=== PATIENT | male | born 1960 | race Caucasian/White ===

== ENCOUNTER 2020-04-19 09:47 | Outpatient (REF) | payer OTHER, SELFPAY ==
[2020-04-19 11:52] LABS: Glucose Urine UA 250 MG/DL (NEG); Leukocyte Esterase Urine NEG (NEG); Nitrite Urine NEG (NEG); PH 5.5 (5.0-8.0); Specific Gravity - Urine >= 1.030 (1.005-1.025); Urine Blood 1+ (NEG); Urine Ketones 15 MG/DL (NEG); Urine Protein 2+ MG/DL (NEG-TRACE)
[2020-04-19 11:54] LABS: Appearance Urine HAZY; Color Urine YELLOW
[2020-04-19 12:07] LABS: Bacteria Urine TRACE /LPF; Mucus Urine 2+ /LPF; RBC Urine 0-2 /HPF (0); Squamous Epithelial Cell Urine TRACE /LPF
== END 2020-04-19 09:48 | disposition home or self-care (01) ==
LOC: HO.HMGCLDS 09:47
PROVIDERS: PCP Internal Medicine; Visit Provider Internal Medicine
DX: R30.0 Dysuria (principal)
CPT/HCPCS: 81001

== ENCOUNTER 2020-04-20 07:49 | Outpatient (REF) | payer OTHER, SELFPAY ==
[2020-04-20 11:13] LABS: Hematocrit 43.6 % (42-52); Hemoglobin 14.7 g/dl (14.0-18.0); Mean Corpuscular HGB Conc 33.7 g/dl (31.0-36.0); Mean Corpuscular Hemoglobin 31.5 pg (27.0-33.0); Mean Corpuscular Volume 93.4 fL (80-98); Mean Platelet Volume 11.7 fL (9.4-12.4); Platelet Count 146 X10*3/uL (160-400); Red Blood Count 4.67 X10*6/uL (4.60-5.80); Red Cell Distribution Width 11.6 % (11.0-16.0); White Blood Count 5.8 X10*3/uL (4.8-10.8)
[2020-04-20 11:23] LABS: Glucose Urine UA 250 MG/DL (NEG); Leukocyte Esterase Urine NEG (NEG); Nitrite Urine NEG (NEG); Specific Gravity - Urine >= 1.030 (1.005-1.025); Urine Blood NEG (NEG); Urine Ketones 5 MG/DL (NEG); Urine Protein 2+ MG/DL (NEG-TRACE)
[2020-04-20 11:24] LABS: Appearance Urine TURBID; Color Urine YELLOW
[2020-04-20 11:32] LABS: Estimated Average Glucose 180 mg/dL; Hemoglobin A1c % 7.9 %
[2020-04-20 11:37] LABS: Alanine Aminotransferase 35 U/L (0-40); Albumin Level 4.3 g/dL (3.5-5.0); Alkaline Phosphatase 52 U/L (39-117); Anion Gap 15 (12-20); Aspartate Amino Transferase 27 U/L (5-37); Bilirubin Total 1.1 mg/dL (0.0-1.0); Blood Urea Nitrogen 14 mg/dL (9-16); Calcium 8.6 mg/dL (8.4-10.2); Carbon Dioxide 24 mmol/L (22-29); Chloride 101 mmol/L (96-108); Cholesterol 166 mg/dL; Estimated Glomerular Filt Rate > 60; Glucose Fasting 228 mg/dL (60-99); HDL Cholesterol 35 mg/dL; LDL Cholesterol Calculated 85 mg/dl; Potassium 3.7 mmol/l (3.3-5.1); Sodium 136 mmol/L (135-145); Total Protein 7.2 g/dL (6.5-8.0); Triglycerides 230 mg/dL
[2020-04-20 11:44] LABS: Amorphous Sediment Urine 3+ /LPF; Bacteria Urine 1+ /LPF; Sperm Urine NOTED; WBC Urine 0-2 /HPF (0-4)
[2020-04-20 11:45] LABS: Creatinine Urine 307.05 mg/dL; Microalbum/Creatinine Ratio Ur 148.8 ug/mg cr
== END 2020-04-20 07:50 | disposition home or self-care (01) ==
LOC: HO.HMGCLDS 07:49
PROVIDERS: PCP Internal Medicine; Visit Provider Internal Medicine
DX: I10 Essential (primary) hypertension (principal); E11.9 Type 2 diabetes mellitus without complications
CPT/HCPCS: 36415; 80053; 80061; 81001; 82043; 83036; 85027

== ENCOUNTER 2021-04-11 10:39 | Outpatient (REF) | payer OTHER, SELFPAY ==
[2021-04-11 13:50] LABS: MANUAL DIFF FLAG NO
[2021-04-11 13:55] LABS: Basophils Percent Auto 0.4 % (0-2); Eosinophils Absolute Auto 0.2 X10*3/uL (0.0-0.4); Eosinophils Percent Auto 2.8 % (0-4); Hematocrit 44.8 % (42.0-52.0); Hemoglobin 15.2 g/dl (14.0-18.0); Imm Gran Abs Auto 0.01 X10*3/uL (0.00-0.03); Imm Gran Pct Auto 0.2 % (0.0-0.4); Mean Corpuscular HGB Conc 33.9 g/dl (31.0-36.0); Mean Corpuscular Hemoglobin 31.9 pg (27.0-33.0); Mean Corpuscular Volume 94.1 fL (80.0-98.0); Mean Platelet Volume 11.2 fL (9.4-12.4); Monocytes Absolute Auto 0.5 X10*3/uL (0.1-1.2); Monocytes Percent Auto 9.6 % (2-11); Neutrophils Absolute Auto 2.8 x10*3/uL (2.0-8.3); Platelet Count 199 X10*3/uL (160-400); Red Blood Count 4.76 X10*6/uL (4.60-5.80); White Blood Count 5.4 X10*3/uL (4.8-10.8)
[2021-04-11 14:08] LABS: Estimated Average Glucose 197 mg/dL; Hemoglobin A1c % 8.5 %
[2021-04-11 14:16] LABS: Appearance Urine CLOUDY; Color Urine YELLOW; Glucose Urine UA 500 MG/DL (NEG); Leukocyte Esterase Urine NEG (NEG); Nitrite Urine NEG (NEG); PH 5.5 (5.0-8.0); Specific Gravity - Urine >= 1.030 (1.005-1.025); Urine Blood NEG (NEG); Urine Ketones NEG (NEG); Urine Protein NEG (NEG-TRACE)
[2021-04-11 14:41] LABS: Alanine Aminotransferase 39 U/L (0-40); Albumin Level 4.6 g/dL (3.5-5.0); Alkaline Phosphatase 55 U/L (39-117); Anion Gap 12 (12-20); Aspartate Amino Transferase 24 U/L (5-37); Bilirubin Total 0.7 mg/dL (0.0-1.0); Blood Urea Nitrogen 11 mg/dL (9-16); Calcium 9.8 mg/dL (8.4-10.2); Carbon Dioxide 25 mmol/L (22-29); Chloride 105 mmol/L (96-108); Cholesterol 245 mg/dL; Estimated Glomerular Filt Rate > 60; Glucose Fasting 210 mg/dL (60-99); HDL Cholesterol 42 mg/dL; LDL Cholesterol Calculated 153 mg/dl; Potassium 4.4 mmol/L (3.3-5.1); Sodium 138 mmol/L (135-145); Total Protein 7.3 g/dL (6.5-8.0); Triglycerides 250 mg/dL
[2021-04-11 14:44] LABS: Creatinine Urine 147.89 mg/dL; Microalbum/Creatinine Ratio Ur 16.2 ug/mg cr; Prostate Specific Antigen Scr 1.16 ng/mL (<0.05-4.0)
[2021-04-11 15:25] LABS: RBC Urine 0 /HPF (0); WBC Urine 0 /HPF (0-4)
[2021-04-11 15:26] LABS: Amorphous Sediment Urine 4+ /LPF
== END 2021-04-11 10:40 | disposition home or self-care (01) ==
LOC: HO.HMGCLDS 10:39
PROVIDERS: PCP Internal Medicine; Visit Provider Internal Medicine
DX: Z12.5 Encounter for screening for malignant neoplasm of prostate (principal); E11.9 Type 2 diabetes mellitus without complications; I10 Essential (primary) hypertension
CPT/HCPCS: 36415; 80053; 80061; 81001; 82043; 83036; 84153; 85025

== ENCOUNTER 2021-07-16 08:06 | Outpatient (REF) | payer OTHER, SELFPAY ==
[2021-07-16 11:59] LABS: Hematocrit 46.6 % (42.0-52.0); Hemoglobin 15.8 g/dl (14.0-18.0); Mean Corpuscular HGB Conc 33.9 g/dl (31.0-36.0); Mean Corpuscular Hemoglobin 31.7 pg (27.0-33.0); Mean Corpuscular Volume 93.6 fL (80.0-98.0); Mean Platelet Volume 10.6 fL (9.4-12.4); Platelet Count 195 X10*3/uL (160-400); Red Blood Count 4.98 X10*6/uL (4.60-5.80); Red Cell Distribution Width 11.9 % (11.0-16.0); White Blood Count 6.6 X10*3/uL (4.8-10.8)
[2021-07-16 12:16] LABS: Alanine Aminotransferase 29 U/L (0-40); Albumin Level 4.4 g/dL (3.5-5.0); Alkaline Phosphatase 49 U/L (39-117); Anion Gap 12 (12-20); Aspartate Amino Transferase 17 U/L (5-37); Blood Urea Nitrogen 15 mg/dL (9-16); Calcium 9.5 mg/dL (8.4-10.2); Carbon Dioxide 26 mmol/L (22-29); Chloride 104 mmol/L (96-108); Cholesterol 165 mg/dL; Estimated Glomerular Filt Rate > 60; Glucose Fasting 199 mg/dL (60-99); HDL Cholesterol 34 mg/dL; LDL Cholesterol Calculated 69 mg/dl; Sodium 138 mmol/L (135-145); Triglycerides 312 mg/dL
[2021-07-16 12:26] LABS: Estimated Average Glucose 220 mg/dL; Hemoglobin A1c % 9.3 %
[2021-07-16 12:47] LABS: Creatinine Urine 68.75 mg/dL; Microalbum/Creatinine Ratio Ur 8.7 ug/mg cr
== END 2021-07-16 08:07 | disposition home or self-care (01) ==
LOC: HO.HMGCLDS 08:06
PROVIDERS: Visit Provider Internal Medicine
DX: E11.9 Type 2 diabetes mellitus without complications (principal); I10 Essential (primary) hypertension
CPT/HCPCS: 36415; 80053; 80061; 82043; 83036; 85027

== ENCOUNTER 2021-07-20 07:35 | Outpatient (REF) | payer OTHER, SELFPAY ==
--- NOTE | ~2021-07-20 | US_ITS ---
EXAMINATION: US RETROPERITONEAL LIMITED (RENAL ONLY) CLINICAL INFORMATION: Calculus of kidney. COMPARISON: Renal ultrasound 03/10/2019. TECHNIQUE: Real-time imaging of the kidneys. FINDINGS: RIGHT KIDNEY: 11.6 x 5.5 x 5.2 cm (SAG x AP x TRV). The kidney is normal in size, contour, and echogenicity. Renal cortical thickness is normal. No hydronephrosis. There is anechoic cyst in the lower pole measuring 0.7 x 0.4 0.6 cm and midpole measuring 0.5 x 0 0.5 to 0.5 cm. 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 There is an nonobstructive echogenic calculi mid/lower pole measuring 0.4 x 0.2 cm. LEFT KIDNEY: 11.9 x 5.2 x 4.7 cm (SAG x AP x TRV). The kidney is normal in size, contour, and echogenicity. Renal cortical thickness is normal. No calculi or focal parenchymal lesions. No hydronephrosis. US/US renal BI IMPRESSION: Nonobstructive echogenic stone mid/lower pole right kidney. 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 Left kidney is unremarkable..
== END 2021-07-20 07:36 | disposition home or self-care (01) ==
LOC: HO.US 07:35
PROVIDERS: Visit Provider Internal Medicine
DX: N20.0 Calculus of kidney (principal)
CPT/HCPCS: 76775

== ENCOUNTER 2022-02-25 08:07 | Outpatient (REF) | payer OTHER, SELFPAY ==
[2022-02-25 12:13] LABS: Alanine Aminotransferase 22 U/L (0-40); Albumin Level 4.4 g/dL (3.5-5.0); Alkaline Phosphatase 52 U/L (39-117); Anion Gap 13 (12-20); Aspartate Amino Transferase 17 U/L (5-37); Bilirubin Total 0.6 mg/dL (0.0-1.0); Blood Urea Nitrogen 14 mg/dL (9-16); Calcium 9.4 mg/dL (8.4-10.2); Carbon Dioxide 26 mmol/L (22-29); Chloride 105 mmol/L (96-108); Cholesterol 199 mg/dL; Estimated Glomerular Filt Rate > 60; Glucose Fasting 208 mg/dL (60-99); HDL Cholesterol 37 mg/dL; LDL Cholesterol Calculated 107 mg/dl; Potassium 4.1 mmol/L (3.3-5.1); Sodium 140 mmol/L (135-145); Total Protein 6.9 g/dL (6.5-8.0); Triglycerides 275 mg/dL
[2022-02-25 12:30] LABS: Estimated Average Glucose 212 mg/dL
== END 2022-02-25 08:08 | disposition home or self-care (01) ==
LOC: HO.HMGCLDS 08:07
PROVIDERS: PCP Internal Medicine; Visit Provider Internal Medicine
DX: E11.9 Type 2 diabetes mellitus without complications (principal); I10 Essential (primary) hypertension
CPT/HCPCS: 36415; 80053; 80061; 83036

== ENCOUNTER 2022-05-04 11:10 | Outpatient (REF) | payer OTHER, SELFPAY ==
--- NOTE | ~2022-05-04 | XR_ITS ---
EXAMINATION: XR CHEST CLINICAL INFORMATION: Cough. COMPARISON: None TECHNIQUE: 2 views of the chest were obtained. FINDINGS: No significant abnormality is noted involving the heart, lungs, mediastinum, bony thorax or soft tissues. XR/XR chest 2V IMPRESSION: Unremarkable chest examination.
== END 2022-05-04 11:11 | disposition home or self-care (01) ==
LOC: HO.HMGCX 11:10
PROVIDERS: PCP Internal Medicine; Visit Provider Physician Assistant Medical
DX: R05.9 Cough, unspecified (principal)
CPT/HCPCS: 71046

== ENCOUNTER 2022-05-04 13:58 | Outpatient (REF) | payer OTHER, SELFPAY ==
[2022-05-04 16:39] LABS: Influenza A PCR NEGATIVE (Negative); Influenza B PCR NEGATIVE (Negative); Resp Syncy Virus RNA Qual PCR NEGATIVE (Negative); SARS COV2 PCR INHOUSE NEGATIVE (Negative)
== END 2022-05-04 13:59 | disposition home or self-care (01) ==
LOC: HO.LAB 13:58
PROVIDERS: Visit Provider Physician Assistant Medical
DX: Z20.822 Contact with and (suspected) exposure to COVID-19 (principal)
CPT/HCPCS: 0241U

== ENCOUNTER 2022-08-15 09:44 | Outpatient (REF) | payer OTHER, SELFPAY ==
[2022-08-15 11:12] LABS: MANUAL DIFF FLAG NO
[2022-08-15 11:24] LABS: Basophils Percent Auto 0.3 % (0-2); Eosinophils Absolute Auto 0.1 X10*3/uL (0.0-0.4); Eosinophils Percent Auto 1.6 % (0-4); Hematocrit 49.6 % (42.0-52.0); Hemoglobin 16.7 g/dl (14.0-18.0); Imm Gran Abs Auto 0.01 X10*3/uL (0.00-0.03); Imm Gran Pct Auto 0.2 % (0.0-0.4); Lymphocytes Percent Auto 32.1 % (20-40); Mean Corpuscular HGB Conc 33.7 g/dl (31.0-36.0); Mean Corpuscular Hemoglobin 31.6 pg (27.0-33.0); Mean Corpuscular Volume 93.8 fL (80.0-98.0); Mean Platelet Volume 10.3 fL (9.4-12.4); Monocytes Absolute Auto 0.7 X10*3/uL (0.1-1.2); Monocytes Percent Auto 11.4 % (2-11); Neutrophils Absolute Auto 3.4 x10*3/uL (2.0-8.3); Neutrophils Percent Auto 54.4 % (45-73); Platelet Count 213 X10*3/uL (160-400); Red Blood Count 5.29 X10*6/uL (4.60-5.80); Red Cell Distribution Width 12.4 % (11.0-16.0); White Blood Count 6.2 X10*3/uL (4.8-10.8)
[2022-08-15 11:38] LABS: Alanine Aminotransferase 22 U/L (0-40); Albumin Level 4.5 g/dL (3.5-5.0); Alkaline Phosphatase 52 U/L (39-117); Anion Gap 15 (12-20); Aspartate Amino Transferase 16 U/L (5-37); Bilirubin Total 1.1 mg/dL (0.0-1.0); Blood Urea Nitrogen 15 mg/dL (9-16); Calcium 9.9 mg/dL (8.4-10.2); Carbon Dioxide 27 mmol/L (22-29); Chloride 103 mmol/L (96-108); Cholesterol 205 mg/dL; Estimated Glomerular Filt Rate > 60; Glucose Fasting 121 mg/dL (60-99); HDL Cholesterol 37 mg/dL; LDL Cholesterol Calculated 115 mg/dl; Potassium 4.8 mmol/L (3.3-5.1); Sodium 140 mmol/L (135-145); Total Protein 7.2 g/dL (6.5-8.0); Triglycerides 268 mg/dL
[2022-08-15 11:57] LABS: Estimated Average Glucose 143 mg/dL; Hemoglobin A1c % 6.6 %
[2022-08-15 12:30] LABS: Creatinine Urine 116.23 mg/dL
== END 2022-08-15 09:45 | disposition home or self-care (01) ==
LOC: HO.HMGCLDS 09:44
PROVIDERS: PCP Internal Medicine; Visit Provider Internal Medicine
DX: E11.9 Type 2 diabetes mellitus without complications (principal); E78.5 Hyperlipidemia, unspecified
CPT/HCPCS: 36415; 80053; 80061; 82043; 83036; 85025

== ENCOUNTER 2022-11-16 08:54 | Outpatient (REF) | payer OTHER, SELFPAY ==
[2022-11-16 11:49] LABS: Estimated Average Glucose 128 mg/dL; Hemoglobin A1c % 6.1 %
[2022-11-16 12:01] LABS: Alanine Aminotransferase 19 U/L (0-40); Albumin Level 4.3 g/dL (3.5-5.0); Alkaline Phosphatase 53 U/L (39-117); Anion Gap 12 (12-20); Aspartate Amino Transferase 18 U/L (5-37); Bilirubin Total 1.1 mg/dL (0.0-1.0); Blood Urea Nitrogen 12 mg/dL (9-16); Calcium 9.4 mg/dL (8.4-10.2); Carbon Dioxide 25 mmol/L (22-29); Chloride 108 mmol/L (96-108); Cholesterol 118 mg/dL; Estimated Glomerular Filt Rate > 60; Glucose Fasting 118 mg/dL (60-99); HDL Cholesterol 35 mg/dL; LDL Cholesterol Calculated 58 mg/dl; Potassium 4.1 mmol/L (3.3-5.1); Sodium 141 mmol/L (135-145); Total Protein 7.1 g/dL (6.5-8.0); Triglycerides 129 mg/dL
[2022-11-16 12:10] LABS: Creatinine Urine 148.03 mg/dL; Microalbum/Creatinine Ratio Ur 5.4 ug/mg cr
== END 2022-11-16 08:55 | disposition home or self-care (01) ==
LOC: HO.HMGCLDS 08:54
PROVIDERS: PCP Internal Medicine; Visit Provider Internal Medicine
DX: E11.9 Type 2 diabetes mellitus without complications (principal); E78.5 Hyperlipidemia, unspecified
CPT/HCPCS: 36415; 80053; 80061; 82043; 83036

== ENCOUNTER 2022-11-20 08:29 | Outpatient (AMB) | payer OTHER, SELFPAY ==
[2022-11-20 08:32] VITALS: BP 110/62; PULSE 82; O2SAT 95; BMI 33.0
--- NOTE | 2022-11-20 08:32 | A.OFFPC_ITS ---
Vital Signs 11/20/22 08:32 Height 5 ft 4 in Weight 192 lb BMI 33.0 BP 110/62 Blood Pressure Location Lt brachial Position Sitting Pulse 82 Pulse Source Pulse Oximeter Pulse Oximetry (%) 95 Oxygen Delivery Method Room Air Intake Visit Reasons: 3m follow up Intake Note: Pt is here today for 3 months follow up visit. Pt states that he has been having R shoulder pain. Allergies iodine Allergy (Unknown, Verified 11/20/22 08:35) Rash chlorine Allergy (Unknown, Uncoded 11/20/22 08:35) Rash Medication List - Last Reconciled 11/20/22 by Vania Bruner MD atorvastatin (Lipitor) 20 mg PO DAILY blood sugar diagnostic (OneTouch Ultra Test strips) 1 bid blood sugar diagnostic (FreeStyle Lite Strips) 1 QD blood-glucose meter (Freestyle InsuLinx meter) 1 bid dapagliflozin propanediol (Farxiga) 10 mg PO DAILY dulaglutide (Trulicity) 0.75 mg (0.5 mL) subcut QWEEK insulin glargine (Lantus Solostar U-100 Insulin) 20 units (0.2 mL) subcut QPM meloxicam 15 mg PO DAILY metformin 2 tabs in am, 3 tabs in pm PO; metoprolol succinate ER 25 mg PO DAILY pen needle, diabetic (Easy Comfort Pen [place]) 1 qd tamsulosin 0.4 mg PO BEDTIME Tobacco use date assessed: 11/20/22 Dental Screening Dental Screen Date: 11/20/22 Did you have a dental visit in the last 12 months?: Yes Did you have a dental problem in the last 6 months where you did not have access to dental care?: No Was dental information given to patient?: Patient has dentist HPI 3m follow up HPI Details Pt presents follow-up of type 2 diabetes and hyperlipidemia. Patient complains of right shoulder pain for 2 weeks after pushing a heavy object. The pain is worse when patient is trying to reach overhead or lift. [facility] Medical History (Updated 11/20/22 @ 12:50 by Vania Bruner MD) Abnormal colonoscopy Annual physical exam DJD (degenerative joint disease), lumbar DM type 2 (diabetes mellitus, type 2) Dysuria Hyperlipidemia Nephrolithiasis Surgical History H/O colonoscopy Family History Father Lung cancer Mother No problems noted. Social History Housing: House Patient Tobacco Use Status: Never used Tobacco e-Cigarette/Vaping Use: Never Used Current occupational status: employed Cognitive needs: No Hearing needs: No Vision needs: Yes Questionnaire Thrive Questionnaire Date Thrive assessed: 05/15/22 AUDIT C Alcohol Use Questionnaire (AUDIT-C) 1. How often do you have a drink containing alcohol?: Never 3. How often do you have six or more drinks on one occasion?: Never Total Score: 0 PARESH-7 AMB Questionnaire PARESH-7 Date PARESH - 7 assessed: 05/15/22 Source: Developed by Drs. Randy Call, Leela Emmanuel, Omar Galaviz and colleagues, with an educational madhu from [employer]. Review of Systems Const All systems reviewed & are unremarkable except as noted in HPI and below Reports no additional complaints Eyes Reports no additional complaints ENT Reports no additional complaints Card Reports no additional complaints GI Reports no additional complaints Physical exam (Primary Care) Vital Signs: Last Vital Signs Pulse 82 11/20/22 08:32 BP 110/62 11/20/22 08:32 Pulse Ox 95 11/20/22 08:32 Oxygen Delivery Method Room Air 11/20/22 08:32 BMI result Body Mass Index 33.0 Tobacco/Smoking Status: Tobacco use Status Tobacco use date assessed 11/20/22 11/20/22 08:36 Patient Tobacco Use Status Never used Tobacco 11/20/22 08:36 e-Cigarette/Vaping Use Never Used 11/20/22 08:36 Thrive Assessment: Date of Thrive Assessment Date Thrive assessed 05/15/22 11/20/22 08:36 Const General: no acute distress HENMT Head: Yes normal to inspection Neck Neck: Yes no lymphadenopathy and Yes supple Resp Effort & Inspection: normal respiratory effort Auscultation: clear to auscultation bilaterally Cardio Rhythm: regular rhythm Heart sounds: S1 normal heart sound present and S2 normal heart sound present GI Inspection: Yes normal to inspection Palpation (GI): Soft to palpation Extrem Other: tenderness over R ant/lat shoulder and DROM Assessment and Plan Assessment & Plan (1) Shoulder pain, right: Code(s): M25.511 - Pain in right shoulder Plan: Meloxicam and PT (2) DM type 2 (diabetes mellitus, type 2): Comment: a1c 6.1, Code(s): E11.9 - Type 2 diabetes mellitus without complications Plan: cont current tx (3) Hyperlipidemia: Code(s): E78.5 - Hyperlipidemia, unspecified Plan: cont Lipitor, f/u 3 month Orders: Orders PT Evaluation and Treatment Today M25.511 - Pain in right shoulder Comprehensive [place]. Panel Fast 3 Months E11.9 - Type 2 diabetes mellitus without complications, E78.5 - Hyperlipidemia, unspecified Hemoglobin A1c 3 Months E11.9 - Type 2 diabetes mellitus without complications, E78.5 - Hyperlipidemia, unspecified Lipid Panel 3 Months E11.9 - Type 2 diabetes mellitus without complications, E78.5 - Hyperlipidemia, unspecified Microalbumin 24 hr Urine 3 Months E11.9 - Type 2 diabetes mellitus without complications, E78.5 - Hyperlipidemia, unspecified Medications: New meloxicam 15 mg PO DAILY 10 tabs 0RF Refilled pen needle, diabetic (Easy Comfort Pen [place]) 1 qd 100 ea 4RF blood sugar diagnostic (FreeStyle Lite Strips) 1 QD 100 ea 3RF Discontinued blood sugar diagnostic (OneTouch Ultra Test strips) Discontinued Reason: Doctor's Order 1 bid 100 ea 6RF Coding Level of Care Code Est Pt Level 4 (62059) Diagnoses Shoulder pain, right M25.511 DM type 2 (diabetes mellitus, type 2) E11.9 Hyperlipidemia E78.5
== END 2022-11-20 09:50 | disposition home or self-care (01) ==
PROVIDERS: Visit Provider Internal Medicine
DX: M25.511 Pain in right shoulder (principal); E11.9 Type 2 diabetes mellitus without complications; E78.5 Hyperlipidemia, unspecified
CPT/HCPCS: 99214

== ENCOUNTER 2023-02-22 08:27 | Outpatient (REF) | payer OTHER, SELFPAY ==
[2023-02-22 11:37] LABS: Alanine Aminotransferase 16 U/L (0-40); Albumin Level 4.4 g/dL (3.5-5.0); Alkaline Phosphatase 47 U/L (39-117); Anion Gap 14 (12-20); Aspartate Amino Transferase 16 U/L (5-37); Bilirubin Total 1.1 mg/dL (0.0-1.0); Blood Urea Nitrogen 18 mg/dL (9-16); Calcium 9.7 mg/dL (8.4-10.2); Carbon Dioxide 23 mmol/L (22-29); Chloride 107 mmol/L (96-108); Cholesterol 152 mg/dL (<200); Estimated Glomerular Filt Rate > 60; Glucose Fasting 132 mg/dL (60-99); HDL Cholesterol 38 mg/dL (>40); LDL Cholesterol Calculated 78 mg/dL (<100); Potassium 4.3 mmol/L (3.3-5.1); Sodium 140 mmol/L (135-145); Total Protein 7.3 g/dL (6.5-8.0); Triglycerides 182 mg/dL (<150)
[2023-02-22 11:41] LABS: Estimated Average Glucose 140 mg/dL; Hemoglobin A1C 172.4065 umol/L; Hemoglobin A1c % 6.5 % (<6.0)
== END 2023-02-22 08:28 | disposition home or self-care (01) ==
LOC: HO.HMGCLDS 08:27
PROVIDERS: PCP Internal Medicine; Visit Provider Internal Medicine
DX: E11.9 Type 2 diabetes mellitus without complications (principal); E78.5 Hyperlipidemia, unspecified
CPT/HCPCS: 36415; 80053; 80061; 83036

== ENCOUNTER 2023-02-24 07:30 | Outpatient (REF) | payer OTHER, SELFPAY ==
[2023-02-24 12:56] LABS: Microalbumin 24 Hour Urine < 5.0 mg/L
[2023-02-24 18:01] LABS: Total Volume 24 Hour Urine 2550 mL
== END 2023-02-24 07:31 | disposition home or self-care (01) ==
LOC: HO.HMGCLNP 07:30
PROVIDERS: PCP Internal Medicine; Visit Provider Internal Medicine
DX: E11.9 Type 2 diabetes mellitus without complications (principal); E78.5 Hyperlipidemia, unspecified
CPT/HCPCS: 82043

== ENCOUNTER 2023-02-25 07:33 | Outpatient (AMB) | payer OTHER, SELFPAY ==
--- NOTE | 2023-02-25 07:46 | MHC.PC.OV ---
Vital Signs 02/25/23 07:47 Height 5 ft 4 in Weight 192 lb BMI 33.0 BP 110/72 Blood Pressure Location Lt brachial Position Sitting Pulse 80 Pulse Source Pulse Oximeter Pulse Oximetry (%) 98 Oxygen Delivery Method Room Air Intake Visit Reasons: 3 month fu Intake Note: Pt is here today for his 3 months f/u Allergies iodine Allergy (Unknown, Verified 02/25/23 07:48) Rash chlorine Allergy (Unknown, Uncoded 02/25/23 07:48) Rash Medication List - Last Reconciled 02/25/23 by Vania Bruner MD atorvastatin (Lipitor) 20 mg PO DAILY blood sugar diagnostic (FreeStyle Lite Strips) 1 QD blood-glucose meter (Freestyle [employer]x meter) 1 bid dapagliflozin propanediol (Farxiga) 10 mg PO DAILY dulaglutide (Trulicity) 0.75 mg (0.5 mL) subcut QWEEK insulin glargine (Lantus Solostar U-100 Insulin) 20 units (0.2 mL) subcut QPM meloxicam 15 mg PO DAILY metformin 2 tabs in am, 3 tabs in pm PO; metoprolol succinate ER 25 mg PO DAILY pen needle, diabetic (Easy Comfort Pen [place]) 1 qd Tobacco use date assessed: 02/25/23 Dental Screening Dental Screen Date: 02/25/23 Did you have a dental visit in the last 12 months?: Yes Did you have a dental problem in the last 6 months where you did not have access to dental care?: Yes Was dental information given to patient?: Patient has dentist HPI 3 month fu HPI Details Patient presents for follow-up of type 2 diabetes, and hyperlipidemia stable on current medications. [facility] Medical History Hyperlipidemia Annual physical exam Abnormal colonoscopy DJD (degenerative joint disease), lumbar DM type 2 (diabetes mellitus, type 2) Dysuria Nephrolithiasis Surgical History H/O colonoscopy Family History Father Lung cancer Mother No problems noted. Social History Housing: House Patient Tobacco Use Status: Never used Tobacco e-Cigarette/Vaping Use: Never Used Current occupational status: employed Cognitive needs: No Hearing needs: No Vision needs: Yes Questionnaire Thrive Questionnaire Date Thrive assessed: 05/15/22 PARESH-7 AMB Questionnaire PARESH-7 Date PARESH - 7 assessed: 05/15/22 Source: Developed by Drs. Randy Call, Leela Emmanuel, Omar Galaviz and colleagues, with an educational madhu from [employer]. Review of Systems Const All systems reviewed & are unremarkable except as noted in HPI and below Reports no additional complaints Eyes Reports no additional complaints ENT Reports no additional complaints Card Reports no additional complaints Resp Reports no additional complaints GI Reports no additional complaints Reports no additional complaints Musc Reports no additional complaints Physical exam (Primary Care) Vital Signs: Last Vital Signs Pulse 80 02/25/23 07:47 BP 110/72 02/25/23 07:47 Pulse Ox 98 02/25/23 07:47 Oxygen Delivery Method Room Air 02/25/23 07:47 BMI result Body Mass Index 33.0 Tobacco/Smoking Status: Tobacco use Status Tobacco use date assessed 02/25/23 02/25/23 07:50 Patient Tobacco Use Status Never used Tobacco 02/25/23 07:50 e-Cigarette/Vaping Use Never Used 02/25/23 07:50 Thrive Assessment: Date of Thrive Assessment Date Thrive assessed 05/15/22 02/25/23 07:50 Const General: no acute distress HENMT Head: Yes normal to inspection Ears: hearing grossly normal bilaterally Throat: Yes posterior oropharynx normal Eyes General: appearance normal, both eyes and all related structures Resp Effort & Inspection: normal respiratory effort Auscultation: clear to auscultation bilaterally Cardio Rhythm: regular rhythm Heart sounds: S1 normal heart sound present and S2 normal heart sound present GI Inspection: Yes normal to inspection Palpation (GI): Soft to palpation Percussion: Yes normal to percussion Assessment and Plan Assessment & Plan (1) Hyperlipidemia: Code(s): E78.5 - Hyperlipidemia, unspecified Plan: Continue statin (2) DM type 2 (diabetes mellitus, type 2): Comment: a1c 6.1, Code(s): E11.9 - Type 2 diabetes mellitus without complications Plan: A1c is 6.5, ADA diet increase physical activity weight loss discussed with the patient. He has not been taking Trulicity for 1 month because did have a refill. Medication complains discussed with the patient, return in 3 months with a fasting labs before Orders: Orders Hemoglobin A1c 3 Months E11.9 - Type 2 diabetes mellitus without complications, E78.5 - Hyperlipidemia, unspecified, Z00.00 - Encounter for general adult medical examination without abnormal findings Lipid Panel 3 Months E11.9 - Type 2 diabetes mellitus without complications, E78.5 - Hyperlipidemia, unspecified, Z00.00 - Encounter for general adult medical examination without abnormal findings Microalbumin, Random (w Creat) 3 Months E11.9 - Type 2 diabetes mellitus without complications, E78.5 - Hyperlipidemia, unspecified, Z00.00 - Encounter for general adult medical examination without abnormal findings Comprehensive [place]. Panel Fast 3 Months E11.9 - Type 2 diabetes mellitus without complications, E78.5 - Hyperlipidemia, unspecified, Z00.00 - Encounter for general adult medical examination without abnormal findings Complete Blood Count Auto Diff 3 Months E11.9 - Type 2 diabetes mellitus without complications, E78.5 - Hyperlipidemia, unspecified, Z00.00 - Encounter for general adult medical examination without abnormal findings UA w Microscopic 3 Months E11.9 - Type 2 diabetes mellitus without complications, E78.5 - Hyperlipidemia, unspecified, Z00.00 - Encounter for general adult medical examination without abnormal findings Referrals Gastroenterology Referral Z00.00 - Encounter for general adult medical examination without abnormal findings Medications: Refilled blood sugar diagnostic (FreeStyle Lite Strips) 1 QD 100 ea 3RF E11.9 - Type 2 diabetes mellitus without complications insulin glargine (Lantus Solostar U-100 Insulin) 20 units (0.2 mL) subcut QPM 15 mL 2RF metoprolol succinate ER 25 mg PO DAILY 90 tabs 3RF pen needle, diabetic (Easy Comfort Pen [place]) 1 qd 100 ea 4RF dulaglutide (Trulicity) 0.75 mg (0.5 mL) subcut QWEEK 6 mL 3RF metformin 2 tabs in am, 3 tabs in pm PO; 150 tabs 6RF atorvastatin (Lipitor) 20 mg PO DAILY 90 tabs 3RF Discontinued tamsulosin Discontinued Reason: Doctor's Order 0.4 mg PO BEDTIME 90 caps 0RF Coding Level of Care Code Est Pt Level 4 (09030) Diagnoses Hyperlipidemia E78.5 DM type 2 (diabetes mellitus, type 2) E11.9
[2023-02-25 07:47] VITALS: BP 110/72; PULSE 80; O2SAT 98; BMI 33.0
== END 2023-02-25 08:35 | disposition home or self-care (01) ==
PROVIDERS: PCP Internal Medicine; Visit Provider Internal Medicine
DX: E78.5 Hyperlipidemia, unspecified (principal); E11.9 Type 2 diabetes mellitus without complications
CPT/HCPCS: 99214

== ENCOUNTER 2023-05-02 12:44 | Outpatient (AMB) | payer OTHER, SELFPAY ==
--- NOTE | 2023-05-02 13:37 | MHC.OFFWIV ---
Intake Vital Signs 05/02/23 13:40 Height 5 ft 4 in Weight 196 lb 8 oz BMI 33.7 BP 130/70 Blood Pressure Location Rt brachial Pulse 90 Pulse Source Pulse Oximeter Temp 97.1 F Temp Source Temporal Artery Scan Pulse Oximetry (%) 97 Oxygen Delivery Method Room Air Intake Visit Reasons: EP, cough ([phone]) Intake Note: Pt is here c/o bad cough for one week. Patient Tobacco Use Status: Never used Tobacco Allergies iodine Allergy (Unknown, Verified 05/02/23 13:37) Rash chlorine Allergy (Unknown, Uncoded 05/02/23 13:37) Rash Do you need a note to return to daycare/school/sports/work: No HPI EP, cough ([phone]) HPI Details This is a 62 year old gentleman who presents today with persistent productive cough x1 week. He reports many family members have also been sick. Denies any fever or shortness of breath. Also reports a fungal rash around penis and under armpits. He states this occurs every so often and he responds well to Fluconazole. [facility] Medical History Hyperlipidemia Annual physical exam Abnormal colonoscopy DJD (degenerative joint disease), lumbar DM type 2 (diabetes mellitus, type 2) Dysuria Nephrolithiasis Surgical History H/O colonoscopy Family History Father Lung cancer Mother No problems noted. Social History Housing: House Patient Tobacco Use Status: Never used Tobacco e-Cigarette/Vaping Use: Never Used Current occupational status: employed Cognitive needs: No Hearing needs: No Vision needs: Yes Review of Systems Const All systems reviewed & are unremarkable except as noted in HPI and below Physical Exam Vital Signs: Last Vital Signs Temp 97.1 F 05/02/23 13:40 Pulse 90 05/02/23 13:40 BP 130/70 05/02/23 13:40 Pulse Ox 97 05/02/23 13:40 Oxygen Delivery Method Room Air 05/02/23 13:40 BMI result Body Mass Index 33.7 Const General: cooperative and no acute distress HEENT Head: Yes normal to inspection Ears: hearing grossly normal bilaterally General nose exam: Normal external nose present Mouth: Normal oral and palatal mucosa present and moist mucous membranes Throat: Yes posterior oropharynx normal Neck Neck: Yes no lymphadenopathy Resp Effort & Inspection: normal respiratory effort, able to speak in complete sentences and Actively coughing Quality: productive Auscultation: clear to auscultation bilaterally Cardio Palpation: normal PMI Rate: regular rate Rhythm: regular rhythm Skin Other: beefy red rash consistent with leslie noted in b/l axilla and sides of penis toward groin Extrem General: Yes capillary refill normal and Yes no clubbing, cyanosis or edema Psych Appearance: grossly normal Mental Status: mental status grossly normal Speech and movement: Normal speech and movement present Assessment & Plan Assessment & Plan (1) Productive cough: Code(s): R05.8 - Other specified cough Plan: Will start on a short course of prednisone and also benzonatate for his cough. Reviewed indications, use, possible s/e of these, including increase in BS with Prednisone. He declines viral testing. If he does not improve with treatment or if symptoms worsen he should return for further evaluation. (2) Candidiasis of skin: Code(s): B37.2 - Candidiasis of skin and nail Plan: Fluconazole prescribed. Reviewed use of this. He has responded well to this treatment previously for similar rashes. He should return for eval if he does not improve. Medications: New benzonatate 100 mg PO BID 7 days PRN 14 caps 0RF cough R05.9 - Cough, unspecified fluconazole may repeat second dose 72 hrs after first dose if symptoms persist 150 mg PO Q3D 2 tabs 0RF prednisone 20 mg PO BID 3 days 6 tabs 0RF Coding Level of Care Code Est Pt Level 4 (72458) Diagnoses Productive cough R05.8 Candidiasis of skin B37.2
[2023-05-02 13:40] VITALS: BP 130/70; PULSE 90; TEMP 36.2; O2SAT 97; BMI 33.7
== END 2023-05-02 14:08 | disposition home or self-care (01) ==
PROVIDERS: PCP Internal Medicine; Visit Provider Nurse Practitioner Family
DX: R05.8 Other specified cough (principal); B37.2 Candidiasis of skin and nail
CPT/HCPCS: 99214

== ENCOUNTER 2023-06-23 07:28 | Outpatient (REF) | payer OTHER, SELFPAY ==
[2023-06-23 11:29] LABS: Appearance Urine Turbid; Color Urine Dark Yellow; Glucose Urine UA Negative (Negative); Leukocyte Esterase Urine Negative (Negative); Nitrite Urine Negative (Negative); Specific Gravity - Urine >= 1.030 (1.005-1.025); UMIC TRIGGER UA YES; Urine Blood Small (1+) (Negative); Urine Ketones Negative (Negative); Urine Protein Negative (Neg-Trace)
[2023-06-23 11:37] LABS: MANUAL DIFF FLAG NO
[2023-06-23 11:40] LABS: Basophils Percent Auto 0.3 % (0-2); Eosinophils Absolute Auto 0.2 X10*3/uL (0.0-0.4); Eosinophils Percent Auto 2.7 % (0-4); Hematocrit 45.9 % (42.0-52.0); Hemoglobin 15.9 g/dl (14.0-18.0); Imm Gran Abs Auto 0.02 X10*3/uL (0.00-0.03); Imm Gran Pct Auto 0.3 % (0.0-0.4); Lymphocytes Absolute Auto 2.7 X10*3/uL (1.2-4.9); Lymphocytes Percent Auto 42.4 % (20-40); Mean Corpuscular HGB Conc 34.6 g/dl (31.0-36.0); Mean Corpuscular Hemoglobin 32.8 pg (27.0-33.0); Mean Corpuscular Volume 94.6 fL (80.0-98.0); Mean Platelet Volume 10.4 fL (9.4-12.4); Monocytes Absolute Auto 0.6 X10*3/uL (0.1-1.2); Monocytes Percent Auto 9.3 % (2-11); Neutrophils Absolute Auto 2.8 x10*3/uL (2.0-8.3); Platelet Count 211 X10*3/uL (160-400); Red Blood Count 4.85 X10*6/uL (4.60-5.80); Red Cell Distribution Width 11.9 % (11.0-16.0); White Blood Count 6.3 X10*3/uL (4.8-10.8)
[2023-06-23 11:49] LABS: Bacteria Urine None Seen (None Seen); Hyaline Casts Urine 0-2 /LPF (0-2); Squamous Epithelial Cell Urine 0-2 /HPF (0-2); WBC Urine 0-5 /HPF (0-5)
[2023-06-23 11:56] LABS: Estimated Average Glucose 148 mg/dL; Hemoglobin A1c % 6.8 % (<6.0)
[2023-06-23 12:04] LABS: Alanine Aminotransferase 23 U/L (0-40); Albumin Level 4.3 g/dL (3.5-5.0); Alkaline Phosphatase 51 U/L (39-117); Anion Gap 11 (12-20); Aspartate Amino Transferase 17 U/L (5-37); Bilirubin Total 1.1 mg/dL (0.0-1.0); Blood Urea Nitrogen 13 mg/dL (9-16); Calcium 9.2 mg/dL (8.4-10.2); Carbon Dioxide 27 mmol/L (22-29); Chloride 105 mmol/L (96-108); Cholesterol 141 mg/dL (<200); Estimated Glomerular Filt Rate > 60; Glucose Fasting 155 mg/dL (60-99); HDL Cholesterol 38 mg/dL (>40); LDL Cholesterol Calculated 61 mg/dL (<100); Potassium 4.1 mmol/L (3.3-5.1); Sodium 139 mmol/L (135-145); Total Protein 7.3 g/dL (6.5-8.0); Triglycerides 210 mg/dL (<150)
[2023-06-23 13:06] LABS: Microalbum/Creatinine Ratio Ur 8.2 ug/mg cr (<30)
== END 2023-06-23 07:29 | disposition home or self-care (01) ==
LOC: HO.HMGCLDS 07:28
PROVIDERS: PCP Internal Medicine; Visit Provider Internal Medicine
DX: Z00.00 Encounter for general adult medical examination without abnormal findings (principal); E11.9 Type 2 diabetes mellitus without complications; E78.5 Hyperlipidemia, unspecified
CPT/HCPCS: 36415; 80053; 80061; 81001; 82043; 82570; 83036; 85025

== ENCOUNTER 2023-06-24 07:29 | Outpatient (AMB) | payer OTHER, SELFPAY ==
[2023-06-24 07:39] VITALS: BP 124/74; PULSE 76; O2SAT 96; BMI 33.3
--- NOTE | 2023-06-24 07:39 | A.OFFPC_ITS ---
Vital Signs 06/24/23 07:39 Height 5 ft 4 in Weight 194 lb BMI 33.3 BP 124/74 Blood Pressure Location Lt brachial Position Sitting Pulse 76 Pulse Source Pulse Oximeter Pulse Oximetry (%) 96 Oxygen Delivery Method Room Air Intake Visit Reasons: Annual PE Intake Note: Pt is here today for his PE Allergies iodine Allergy (Unknown, Verified 06/24/23 07:39) Rash dapagliflozin [From Farxiga] Adverse Reaction (Intermediate, Verified 06/24/23 20:35) Candidiasis chlorine Allergy (Unknown, Uncoded 06/24/23 07:39) Rash Medication List - Last Reconciled 06/24/23 by Vania Bruner MD atorvastatin (Lipitor) 20 mg PO DAILY blood sugar diagnostic (FreeStyle Lite Strips) 1 QD blood-glucose meter (Freestyle InsuLinx meter) 1 bid dulaglutide (Trulicity) 0.75 mg (0.5 mL) subcut QWEEK insulin glargine (Lantus Solostar U-100 Insulin) 20 units (0.2 mL) subcut QPM metformin 2 tabs in am, 3 tabs in pm PO; metoprolol succinate ER 25 mg PO DAILY pen needle, diabetic (BD Ultra-Fine Micro Pen Needle) Use to inject insulin once a day Tobacco use date assessed: 06/24/23 Dental Screening Dental Screen Date: 06/24/23 HPI Annual PE HPI Details Patient presents for physical. Type 2 diabetes and hyperlipidemia controlled on current medications. Patient has stopped taking Farxiga because he developed candidiasis. [facility] Medical History (Updated 06/24/23 @ 20:39 by Vania Bruner MD) Hyperlipidemia Annual physical exam Abnormal colonoscopy DJD (degenerative joint disease), lumbar DM type 2 (diabetes mellitus, type 2) Dysuria Nephrolithiasis Surgical History H/O colonoscopy Family History Father Lung cancer Mother No problems noted. Social History Housing: House Patient Tobacco Use Status: Never used Tobacco e-Cigarette/Vaping Use: Never Used Current occupational status: employed Cognitive needs: No Hearing needs: No Vision needs: Yes Questionnaire PHQ-9 Over the last 2 weeks, how often have you been bothered by any of the following problems? 95392 - PHQ-9 Billing: Patient declined-do not bill Source: Developed by Drs. Randy Call, Leela Emmanuel, Omar Galaviz and colleagues, with an educational madhu from [employer]. Thrive Questionnaire Date Thrive assessed: 06/24/23 What is your living situation today?: I choose not to answer this question Within the past 12 months, did the food you bought not last and you didn't have the money to get more?: I choose not to answer this question Within the past 12 months, did you worry whether your food would run out before you got money to buy more?: I choose not to answer this question Do you have trouble paying for medicines?: I choose not to answer this question Do you have trouble getting transportation to medical appointments?: I choose not to answer this question Do you have trouble paying your heating and electricity bill?: I choose not to answer this question Do you have trouble taking care of your child, family member or friend?: I choose not to answer this question Do you have trouble with day-to-day activities such as bathing, preparing meals, shopping, managing finances, etc.?: I choose not to answer this question Are you currently unemployed and looking for a job?: I choose not to answer this question Are you interested in more education?: I choose not to answer this question THRIVE Score: 0 AUDIT C Alcohol Use Questionnaire (AUDIT-C) 1. How often do you have a drink containing alcohol?: Never Total Score: 0 PARESH-7 AMB Questionnaire PARESH-7 Date PARESH - 7 assessed: 06/24/23 Source: Developed by Drs. Randy Call, Leela Emmanuel, Omar Galaviz and colleagues, with an educational madhu from [employer]. PARESH-7 Assessment Billing PARESH-7 Assessment Tool: pt declined-do not bill Review of Systems Const All systems reviewed & are unremarkable except as noted in HPI and below Reports no additional complaints Eyes Reports no additional complaints ENT Reports no additional complaints Card Reports no additional complaints Resp Reports no additional complaints GI Reports no additional complaints Reports no additional complaints Physical exam (Primary Care) Vital Signs: Last Vital Signs Pulse 76 06/24/23 07:39 BP 124/74 06/24/23 07:39 Pulse Ox 96 06/24/23 07:39 Oxygen Delivery Method Room Air 06/24/23 07:39 BMI result Body Mass Index 33.3 Tobacco/Smoking Status: Tobacco use Status Tobacco use date assessed 06/24/23 06/24/23 07:43 Patient Tobacco Use Status Never used Tobacco 06/24/23 07:43 e-Cigarette/Vaping Use Never Used 06/24/23 07:43 Thrive Assessment: Date of Thrive Assessment Date Thrive assessed 06/24/23 06/24/23 07:47 Const General: no acute distress HENMT Head: Yes normal to inspection Ears: hearing grossly normal bilaterally Mouth: Normal oral and palatal mucosa present Throat: Yes posterior oropharynx normal Eyes General: appearance normal, both eyes and all related structures Neck Neck: Yes no lymphadenopathy and Yes supple Resp Effort & Inspection: normal respiratory effort Auscultation: clear to auscultation bilaterally Cardio Rhythm: regular rhythm Heart sounds: S1 normal heart sound present and S2 normal heart sound present GI Inspection: Yes normal to inspection Palpation (GI): Soft to palpation Percussion: Yes normal to percussion Auscultation: normal bowel sounds Assessment and Plan Assessment & Plan (1) Lower back pain: Code(s): M54.50 - Low back pain, unspecified Plan: Referred to physical therapy (2) Annual physical exam: Code(s): Z00.00 - Encounter for general adult medical examination without abnormal findings Plan: Well-balanced diet regular exercise discussed with the patient (3) Abnormal colonoscopy: Comment: 2018, 3 POLYPS. [facility] repeat in 5 yrs recommended. Patient declined. Cologuard is ordered Code(s): R93.3 - Abnormal findings on diagnostic imaging of other parts of digestive t ract (4) DM type 2 (diabetes mellitus, type 2): Comment: A1C 6.8 06/21 Code(s): E11.9 - Type 2 diabetes mellitus without complications Plan: A1c is up to 6.8 since patient stopped Farxiga. ADA diet increase exercise weight loss discussed with the patient. We will increase Trulicity to 1.5 mg and continue metformin. Follow-up in 3 months with a fasting labs before Orders: Orders Comprehensive [place]. Panel Fast 3 Months E11.9 - Type 2 diabetes mellitus without complications, E78.5 - Hyperlipidemia, unspecified, Z00.00 - Encounter for g eneral adult medical examination without abnormal findings Lipid Panel 3 Months E11.9 - Type 2 diabetes mellitus without complications, E78.5 - Hyperlipidemia, unspecified, Z00.00 - Encounter for general adult medical examination without abnormal findings Complete Blood Count Auto Diff 3 Months E11.9 - Type 2 diabetes mellitus without complications, E78.5 - Hyperlipidemia, unspecified, Z00.00 - Encounter for general adult medical examination without abnormal findings Hemoglobin A1c 3 Months E11.9 - Type 2 diabetes mellitus without complications, E78.5 - Hyperlipidemia, unspecified, Z00.00 - Encounter for general adult medical examination without abnormal findings Microalbumin, Random (w Creat) 3 Months E11.9 - Type 2 diabetes mellitus without complications, E78.5 - Hyperlipidemia, unspecified, Z00.00 - Encounter for general adult medical examination without abnormal findings PT Evaluation and Treatment Today M54.50 - Low back pain, unspecified Referrals Cologuard Test Z12.11 - Encounter for screening for malignant neoplasm of colon, Z12.12 - Encounter for screening for malignant neoplasm of rectum Medications: New dulaglutide (Trulicity) 1.5 mg (0.5 mL) subcut QWEEK 6 mL 3RF Discontinued dulaglutide (Trulicity) Discontinued Reason: Doctor's Order 0.75 mg (0.5 mL) subcut QWEEK 6 mL 3RF Coding Level of Care Code Est Pt Prev Care 40-64y(99917) Diagnoses Lower back pain M54.50 Annual physical exam Z00.00 Abnormal colonoscopy R93.3 DM type 2 (diabetes mellitus, type 2) E11.9
== END 2023-06-24 08:23 | disposition home or self-care (01) ==
PROVIDERS: PCP Internal Medicine; Visit Provider Internal Medicine
DX: Z00.00 Encounter for general adult medical examination without abnormal findings (principal); E11.9 Type 2 diabetes mellitus without complications; M54.50 Low back pain, unspecified; R93.3 Abnormal findings on diagnostic imaging of other parts of digestive tract
CPT/HCPCS: 99396

== ENCOUNTER 2023-10-02 08:17 | Outpatient (AMB) | payer OTHER, SELFPAY ==
[2023-10-02 08:31] VITALS: BP 120/74; PULSE 69; O2SAT 97; BMI 34.2
--- NOTE | 2023-10-02 08:31 | MHC.PC.OV ---
Vital Signs 10/02/23 08:31 Height 5 ft 4 in Weight 199 lb BMI 34.2 BP 120/74 Blood Pressure Location Lt brachial Position Sitting Pulse 69 Pulse Source Pulse Oximeter Pulse Oximetry (%) 97 Oxygen Delivery Method Room Air Intake Visit Reasons: 6M F/U- NEEDS PHQ9 + A1C Allergies iodine Allergy (Unknown, Verified 06/24/23 07:39) Rash dapagliflozin [From [facility]] Adverse Reaction (Intermediate, Verified 06/24/23 20:35) Candidiasis chlorine Allergy (Unknown, Uncoded 06/24/23 07:39) Rash Medication List - Last Reconciled 10/02/23 by Vania Bruner MD atorvastatin (Lipitor) 20 mg PO DAILY blood sugar diagnostic (FreeStyle Lite Strips) 1 QD blood-glucose meter (Freestyle [employer] meter) 1 bid insulin glargine (Lantus Solostar U-100 Insulin) 20 units (0.2 mL) subcut QPM metformin 2 tabs in am, 3 tabs in pm PO; metoprolol succinate ER 25 mg PO DAILY pen needle, diabetic (BD Ultra-Fine Micro Pen Needle) Use to inject insulin once a day Trulicity (dulaglutide) 3 mg (0.5 mL) subcut QWEEK NS Tobacco use date assessed: 06/24/23 Dental Screening Dental Screen Date: 06/24/23 HPI 6M F/U- NEEDS PHQ9 + A1C HPI Details Patient presents for the follow-up of type 2 diabetes hyperlipidemia. Patient reports high blood glucose readings for the last few weeks up to 170 in the morning. He denies any change in his diet food intake or activity level. He has not been taking Trulicity for 2 weeks. Patient has been under lot of stress related his daughter with for your twins living in the same house. Patient reports dyspnea on exertion when walking up the stairs but denies PND orthopnea. He reports feeling generally fatigued but denies exercise induced chest pain or palpitations. [facility] Medical History Hyperlipidemia Annual physical exam Abnormal colonoscopy DJD (degenerative joint disease), lumbar DM type 2 (diabetes mellitus, type 2) Dysuria Nephrolithiasis Surgical History H/O colonoscopy Family History Father Lung cancer Mother No problems noted. Social History Housing: House Patient Tobacco Use Status: Never used Tobacco e-Cigarette/Vaping Use: Never Used service: No Current occupational status: employed Cognitive needs: No Hearing needs: No Vision needs: Yes Questionnaire PHQ-9 Over the last 2 weeks, how often have you been bothered by any of the following problems? 1. Little interest or pleasure in doing things: not at all 2. Feeling down, depressed, or hopeless: not at all 3. Trouble falling or staying asleep, or sleeping too much: not at all 4. Feeling tired or having little energy: not at all 5. Poor appetite or overeating: not at all 6. Feeling bad about yourself - or that you are a failure or have let yourself or your family down: not at all 7. Trouble concentrating on things, such as reading the newspaper or watching television: not at all 8. Moving or speaking so slowly that other people could have noticed. Or the opposite - being so fidgety or restless that you have been moving around a lot more than usual: not at all 9. Thoughts that you would be better off or of hurting yourself in some way: not at all Total score: 0 Depression Screening Interpretation: Negative Depression Screening Done: Yes Source: Developed by Drs. Randy Call, Leela Emmanuel, Omar Galaviz and colleagues, with an educational madhu from [employer]. Thrive Questionnaire Date Thrive assessed: 06/24/23 PARESH-7 AMB Questionnaire PARESH-7 Date PARESH - 7 assessed: 10/02/23 Feeling nervous, anxious, or on edge: 0 = Not at all Not being able to stop or control worryin = Not at all Worrying too much about different things: 0 = Not at all Trouble relaxin = Not at all Being so restless that it is hard to sit still: 0 = Not at all Becoming easily annoyed or irritable: 0 = Not at all Feeling afraid as if something awful might happen: 0 = Not at all Total PARESH-7 score (0-4 normal; 5-9 mild; 10-14 moderate; 15-21 severe): 0 Source: Developed by Drs. Randy Call, Leela Emmanuel, Omar Galaviz and colleagues, with an educational madhu from [employer]. Review of Systems Const All systems reviewed & are unremarkable except as noted in HPI and below Eyes Reports no additional complaints ENT Reports no additional complaints Card Reports no additional complaints Resp Reports no additional complaints GI Reports no additional complaints Reports no additional complaints Musc Reports no additional complaints Physical exam (Primary Care) Vital Signs: Last Vital Signs Pulse 69 10/02/23 08:31 BP 120/74 10/02/23 08:31 Pulse Ox 97 10/02/23 08:31 Oxygen Delivery Method Room Air 10/02/23 08:31 BMI result Body Mass Index 34.2 Tobacco/Smoking Status: Tobacco use Status Tobacco use date assessed 06/24/23 10/02/23 08:31 Patient Tobacco Use Status Never used Tobacco 10/02/23 08:31 e-Cigarette/Vaping Use Never Used 10/02/23 08:31 PHQ-9: PHQ-9 Score PHQ-9: Total score 0 10/02/23 08:37 Depression Screening Interpretation: Negative Thrive Assessment: Date of Thrive Assessment Date Thrive assessed 06/24/23 10/02/23 08:31 Const General: no acute distress HENMT Head: Yes normal to inspection Eyes General: appearance normal, both eyes and all related structures Resp Effort & Inspection: normal respiratory effort Auscultation: clear to auscultation bilaterally Cardio Rhythm: regular rhythm Heart sounds: S1 normal heart sound present and S2 normal heart sound present GI Palpation (GI): Soft to palpation Assessment and Plan Assessment & Plan (1) DM type 2 (diabetes mellitus, type 2): Comment: A1C 6.8 06/21 Code(s): E11.9 - Type 2 diabetes mellitus without complications Plan: ADA diet regular exercise weight loss discussed with the patient. Increase Trulicity to 3 mg weekly continue insulin and metformin. Patient had blood work today and in 3 months (2) PAREKH (dyspnea on exertion): Code(s): R06.09 - Other forms of dyspnea Plan: EKG showed normal sinus rhythm no ST-T changes, obtain echocardiogram to rule out segmental wall motion abnormalities. (3) Hyperlipidemia: Code(s): E78.5 - Hyperlipidemia, unspecified Plan: Continue statin Orders: Orders Hemoglobin A1c 3 Months E11.9 - Type 2 diabetes mellitus without complications, E78.5 - Hyperlipidemia, unspecified Lipid Panel 3 Months E11.9 - Type 2 diabetes mellitus without complications, E78.5 - Hyperlipidemia, unspecified CA echo transthoracic complete Today E11.9 - Type 2 diabetes mellitus without complications, E78.5 - Hyperlipidemia, unspecified, R06.09 - Other forms of dyspnea Comprehensive [place]. Panel Fast 3 Months E11.9 - Type 2 diabetes mellitus without complications, E78.5 - Hyperlipidemia, unspecified Microalbumin, Random (w Creat) 3 Months E11.9 - Type 2 diabetes mellitus without complications, E78.5 - Hyperlipidemia, unspecified Medications: New Trulicity (dulaglutide) 3 mg (0.5 mL) subcut QWEEK 6 mL 0RF NS Refilled metoprolol succinate ER 25 mg PO DAILY 90 tabs 3RF atorvastatin (Lipitor) 20 mg PO DAILY 90 tabs 3RF metformin 2 tabs in am, 3 tabs in pm PO; 150 tabs 6RF insulin glargine (Lantus Solostar U-100 Insulin) 20 units (0.2 mL) subcut QPM 15 mL 2RF Discontinued dulaglutide (Trulicity) Discontinued Reason: Doctor's Order 1.5 mg (0.5 mL) subcut QWEEK 6 mL 3RF Coding Level of Care Code Est Pt Level 4 (50929) Diagnoses DM type 2 (diabetes mellitus, type 2) E11.9 PAREKH (dyspnea on exertion) R06.09 Hyperlipidemia E78.5
== END 2023-10-02 09:17 | disposition home or self-care (01) ==
PROVIDERS: PCP Internal Medicine; Visit Provider Internal Medicine
DX: E11.9 Type 2 diabetes mellitus without complications (principal); R06.09 Other forms of dyspnea; E78.5 Hyperlipidemia, unspecified
CPT/HCPCS: 99214

== ENCOUNTER 2023-10-02 09:20 | Outpatient (REF) | payer OTHER, SELFPAY ==
[2023-10-02 10:24] LABS: MANUAL DIFF FLAG NO
[2023-10-02 10:37] LABS: Basophils Percent Auto 0.4 % (0-2); Eosinophils Absolute Auto 0.2 X10*3/uL (0.0-0.4); Eosinophils Percent Auto 2.9 % (0-4); Imm Gran Abs Auto 0.02 X10*3/uL (0.00-0.03); Imm Gran Pct Auto 0.4 % (0.0-0.4); Lymphocytes Absolute Auto 2.2 X10*3/uL (1.2-4.9); Lymphocytes Percent Auto 40.3 % (20-40); Mean Corpuscular HGB Conc 34.9 g/dl (31.0-36.0); Mean Corpuscular Hemoglobin 32.5 pg (27.0-33.0); Mean Corpuscular Volume 93.1 fL (80.0-98.0); Mean Platelet Volume 10.4 fL (9.4-12.4); Monocytes Absolute Auto 0.5 X10*3/uL (0.1-1.2); Monocytes Percent Auto 9.7 % (2-11); Neutrophils Absolute Auto 2.5 x10*3/uL (2.0-8.3); Neutrophils Percent Auto 46.3 % (45-73); Platelet Count 187 X10*3/uL (160-400); Red Blood Count 4.62 X10*6/uL (4.60-5.80); Red Cell Distribution Width 11.8 % (11.0-16.0); White Blood Count 5.4 X10*3/uL (4.8-10.8)
[2023-10-02 10:51] LABS: Alanine Aminotransferase 27 U/L (0-40); Albumin Level 4.5 g/dL (3.5-5.0); Alkaline Phosphatase 49 U/L (39-117); Anion Gap 16 (12-20); Aspartate Amino Transferase 17 U/L (5-37); Bilirubin Total 0.5 mg/dL (0.0-1.0); Blood Urea Nitrogen 16 mg/dL (9-16); Calcium 9.4 mg/dL (8.4-10.2); Carbon Dioxide 23 mmol/L (22-29); Chloride 105 mmol/L (96-108); Cholesterol 173 mg/dL (<200); Estimated Glomerular Filt Rate > 60; Glucose Fasting 192 mg/dL (60-99); HDL Cholesterol 28 mg/dL (>40); Potassium 4.3 mmol/L (3.3-5.1); Sodium 140 mmol/L (135-145); Total Protein 7.4 g/dL (6.5-8.0); Triglycerides 618 mg/dL (<150)
[2023-10-02 10:56] LABS: Estimated Average Glucose 154 mg/dL
[2023-10-02 11:18] LABS: Microalbum/Creatinine Ratio Ur 5.7 ug/mg cr (<30)
== END 2023-10-02 09:21 | disposition home or self-care (01) ==
LOC: HO.HMGCLDS 09:20
PROVIDERS: PCP Internal Medicine; Visit Provider Internal Medicine
DX: Z00.00 Encounter for general adult medical examination without abnormal findings (principal); E11.9 Type 2 diabetes mellitus without complications; E78.5 Hyperlipidemia, unspecified
CPT/HCPCS: 36415; 80053; 80061; 82043; 82570; 83036; 85025

== ENCOUNTER → 2023-11-07 14:46 | Outpatient (REF) | payer OTHER, SELFPAY ==
--- NOTE | 2023-11-07 14:48 | CA_ITS ---
Transthoracic Echocardiogram Patient (Last, First, Middle): Geraldo Guadarrama, Gender: Male Date of : 1960 Age: 63 Procedure Date: 11/07/2023 Procedure Type: Transthoracic Echocardiogram Location: OP Height: 175.26 cm Weight: 89.81 kg BSA: 2.06 m2 Heart Rate: 75 bpm BP: 115 / 60 mmHg Oncology Nurse: KEVIN Referring MD: Vania Bruner MD Symptoms: R06.09 - Other forms of dyspnea Study Quality: Adequate ECG Rhythm: Sinus Conclusions: - Normal left ventricular size, thickness, systolic function, and wall motion. The visually estimated ejection fraction is between 55-60%. Diastolic function is normal for age. - Normal right ventricular cavity size and systolic function. - There is mild dilatation of the sinuses of Valsalva measuring 3.70 cm. Findings Left Ventricle Normal left ventricular size, thickness, systolic function, and wall motion. The visually estimated ejection fraction is between 55-60%. Diastolic function is normal for age. Right Ventricle Normal right ventricular cavity size and systolic function. Atria The left atrium is normal in size. The right atrium is mildly dilated. Aortic Valve There is a normal trileaflet aortic valve. There is no aortic valve stenosis. There is trace (trivial) aortic valve regurgitation. Mitral Valve The mitral valve appears normal. There is no mitral valve regurgitation. There is no mitral valve stenosis. Pulmonic Valve Normal pulmonic valve structure and function. There is no pulmonic valve regurgitation. Tricuspid Valve Normal tricuspid valve structure. There is no tricuspid valve regurgitation. Normal right atrial pressure. There is no evidence of pulmonary hypertension. Great Vessels There is mild dilatation of the sinuses of Valsalva measuring 3.70 cm. The visualized portions of the pulmonary artery and branches are normal. Venous The inferior vena cava is normal in size and collapses greater than 50% with inspiration. Pericardium/Pleural There is no evidence of pericardial effusion. Prior Study Comparison No prior study available for comparison. Measurements 2D Linear Measurements IVSd: 0.89 0.6-0.9/0.6-1.0 cm LVIDd: 3.97 3.9-5.3/4.2-5.9 cm LVIDd Index: 1.93 2.4-3.2/2.2-3.1 cm/m2 LVIDs: 2.24 2.0-3.6 cm LVPWd: 1.02 0.7-1.1 cm LA Diam: 2.50 2.7-3.8/3.0-4.0 cm LAIDs Index: 1.21 1.5-2.3 cm/m2 LV Mass: 146.25 67-162/88-224 g LV Mass Index: 70.99 43-95/49-115 g/m2 LVOT Diam: 2.20 3.0+(-)1.3 cm 2D Systolic Function EF 4C: 54.90 >55% EF 2C: 60.90 >55% EF BiP: 56.70 >55% Mitral Valve MV Pk E: 0.61 MV PK A: 0.53 MV Decel Time: 244.00 E/A: 1.10 E'Lateral: 11.30 E'Medial: 7.94 E/E' Med: 7.60 E/E' Lat: 5.40 PHT: 71.00 MVA PHT: 3.10 Decel [place]: 2.48 Aortic Valve AoV Pk Kiran: 1.18 AoV Mn Kiran: 0.90 AoV VTI: 0.27 AoV Pk Grad: 6.00 Aov Mn Grad: 4.00 GAURAV Cont.VTI: 3.07 LVOT LVOT Pk Kiran: 1.07 LVOT Mn Kiran: 0.72 LVOT VTI: 0.22 LVOT Pk Grad: 5.00 LVOT Mn Grad: 2.00 LVOT Diam: 2.20 LVOT Area: 3.80 Diastolic Function MV Pk E: 0.61 MV Pk A: 0.53 E/A: 1.10 E'Medial: 7.94 E/E' Med: 7.60 E' Laterial: 11.30 E/E' Lat: 5.40 Right Ventricle TAPSE (mm): 24.90 TVS' Kiran: 14.10 Tricuspid Valve TR Pk Kiran: 1.80 TR Pk Grad: 13.00 RA Press: 3.00 RVSP: 16.00 Great Vessels Aorta Sinus of Valsalva: 3.70 2.0-3.5 cm Pulmonary Valve PV Pk Kiran: 1.17 Peak PV Grad: 5.00 Updated in Other Vendor System with Status of Final Jimmie Estrada MD electronically signed on 11/09/2023 1:43:03 PM with status of Final
== END ==
LOC: HO.CARD 14:46
PROVIDERS: PCP Internal Medicine; Visit Provider Internal Medicine
DX: R06.09 Other forms of dyspnea (principal); E78.5 Hyperlipidemia, unspecified; E11.9 Type 2 diabetes mellitus without complications
CPT/HCPCS: 93306

== ENCOUNTER → 2023-11-07 14:48 | Outpatient (BNV) | payer OTHER, SELFPAY | PROVIDERS: PCP Internal Medicine; Visit Provider Internal Medicine Cardiovascular Disease | DX: R06.02 Shortness of breath (principal) | CPT/HCPCS: 93306 ==

== ENCOUNTER 2023-12-31 07:50 | Outpatient (REF) | payer OTHER, SELFPAY ==
[2023-12-31 10:17] LABS: Estimated Average Glucose 151 mg/dL; Hemoglobin A1c % 6.9 % (<6.0)
[2023-12-31 10:28] LABS: Alanine Aminotransferase 23 U/L (0-40); Albumin Level 4.4 g/dL (3.5-5.0); Alkaline Phosphatase 49 U/L (39-117); Anion Gap 13 (12-20); Aspartate Amino Transferase 18 U/L (5-37); Bilirubin Total 0.6 mg/dL (0.0-1.0); Blood Urea Nitrogen 13 mg/dL (9-16); Calcium 9.4 mg/dL (8.4-10.2); Carbon Dioxide 25 mmol/L (22-29); Chloride 107 mmol/L (96-108); Cholesterol 127 mg/dL (<200); Estimated Glomerular Filt Rate > 60; Glucose Fasting 143 mg/dL (60-99); HDL Cholesterol 36 mg/dL (>40); LDL Cholesterol Calculated 59 mg/dL (<100); Sodium 141 mmol/L (135-145); Total Protein 7.2 g/dL (6.5-8.0); Triglycerides 161 mg/dL (<150)
[2023-12-31 10:44] LABS: Creatinine Urine 150.87 mg/dL; Microalbum/Creatinine Ratio Ur 7.9 ug/mg cr (<30)
== END 2023-12-31 07:51 | disposition home or self-care (01) ==
LOC: HO.HMGCLDS 07:50
PROVIDERS: PCP Internal Medicine; Visit Provider Internal Medicine
DX: E11.9 Type 2 diabetes mellitus without complications (principal); E78.5 Hyperlipidemia, unspecified
CPT/HCPCS: 36415; 80053; 80061; 82043; 82570; 83036

== ENCOUNTER 2024-01-22 09:42 | Outpatient (AMB) | payer OTHER, SELFPAY ==
--- NOTE | 2024-01-22 09:50 | MHC.PC.OV ---
Vital Signs 01/22/24 09:52 Height 5 ft 4 in Weight 193 lb BMI 33.1 BP 120/70 Blood Pressure Location Lt brachial Position Sitting Pulse 95 Pulse Source Pulse Oximeter Pulse Oximetry (%) 97 Oxygen Delivery Method Room Air Intake Visit Reasons: Follow up Intake Note: Pt is here today for a follow up visit on labs. Allergies iodine Allergy (Unknown, Verified 01/22/24 09:53) Rash dapagliflozin [From [facility]] Adverse Reaction (Intermediate, Verified 01/22/24 09:53) Candidiasis chlorine Allergy (Unknown, Uncoded 01/22/24 09:53) Rash Medication List - Last Reconciled 01/22/24 by Vania Bruner MD atorvastatin (Lipitor) 20 mg PO DAILY blood sugar diagnostic (FreeStyle Lite Strips) 1 QD blood-glucose meter (Freestyle [employer] meter) 1 bid insulin glargine (Lantus Solostar U-100 Insulin) 20 units (0.2 mL) subcut QPM metformin 2 tabs in am, 3 tabs in pm PO; metoprolol succinate ER 25 mg PO DAILY pen needle, diabetic (BD Ultra-Fine Micro Pen Needle) Use to inject insulin once a day Trulicity (dulaglutide) 3 mg (0.5 mL) subcut QWEEK NS Tobacco use date assessed: 01/22/24 Dental Screening Dental Screen Date: 06/24/23 HPI Follow up HPI Details Patient presents for the follow-up of type 2 diabetes hypertension and hyperlipidemia. He reports improved fasting blood glucose readings since started Trulicity down to 100-120. Patient complains of chronic postnasal drip. [facility] Medical History Hyperlipidemia Annual physical exam Abnormal colonoscopy DJD (degenerative joint disease), lumbar DM type 2 (diabetes mellitus, type 2) Dysuria Nephrolithiasis Surgical History H/O colonoscopy Family History Father Lung cancer Mother No problems noted. Social History Housing: House Patient Tobacco Use Status: Never used Tobacco e-Cigarette/Vaping Use: Never Used service: No Current occupational status: employed Cognitive needs: No Hearing needs: No Vision needs: Yes Questionnaire Thrive Questionnaire Date Thrive assessed: 06/24/23 PARESH-7 AMB Questionnaire PARESH-7 Date PARESH - 7 assessed: 10/02/23 Source: Developed by Drs. Randy Call, Leela Emmanuel, Omar Galaviz and colleagues, with an educational madhu from [email or web address]. Review of Systems Const All systems reviewed & are unremarkable except as noted in HPI and below Card Reports no additional complaints Resp Reports no additional complaints GI Reports no additional complaints Reports no additional complaints Physical exam (Primary Care) Vital Signs: Last Vital Signs Pulse 95 01/22/24 09:52 BP 120/70 01/22/24 09:52 Pulse Ox 97 01/22/24 09:52 Oxygen Delivery Method Room Air 01/22/24 09:52 BMI result Body Mass Index 33.1 Tobacco/Smoking Status: Tobacco use Status Tobacco use date assessed 01/22/24 01/22/24 09:55 Patient Tobacco Use Status Never used Tobacco 01/22/24 09:55 e-Cigarette/Vaping Use Never Used 01/22/24 09:52 Thrive Assessment: Date of Thrive Assessment Date Thrive assessed 06/24/23 01/22/24 09:52 Const General: no acute distress HENMT Ears: TM's normal bilaterally Face and sinus: Yes normal facial exam Mouth: Normal oral and palatal mucosa present Throat: Yes posterior oropharynx normal and Yes postnasal drainage Resp Effort & Inspection: normal respiratory effort Auscultation: clear to auscultation bilaterally Cardio Rhythm: regular rhythm Heart sounds: S1 normal heart sound present and S2 normal heart sound present GI Palpation (GI): Soft to palpation Percussion: Yes normal to percussion Auscultation: normal bowel sounds Assessment and Plan Assessment & Plan (1) DM type 2 (diabetes mellitus, type 2): Comment: A1C 6.8 06/21 Code(s): E11.9 - Type 2 diabetes mellitus without complications Plan: A1c is 6.9 but patient reports improved fasting blood glucose readings. He will decrease Lantus to 16 units and continue metformin and Trulicity. Follow-up in 3 months with a fasting labs before (2) Hyperlipidemia: Code(s): E78.5 - Hyperlipidemia, unspecified Plan: Continue statin (3) Postnasal drip: Code(s): R09.82 - Postnasal drip Plan: Try Flonase nasal spray Orders: Orders Hemoglobin A1c 3 Months E11.9 - Type 2 diabetes mellitus without complications, E78.5 - Hyperlipidemia, unspecified Lipid Panel 3 Months E11.9 - Type 2 diabetes mellitus without complications, E78.5 - Hyperlipidemia, unspecified Comprehensive [place]. Panel Fast 3 Months E11.9 - Type 2 diabetes mellitus without complications, E78.5 - Hyperlipidemia, unspecified Medications: New fluticasone propionate 50 mcg/actuation (Flonase Allergy Relief) administer into each nostril 1 spray intranasal DAILY 16 grams 2RF Coding Level of Care Code Est Pt Level 4 (99196) Diagnoses DM type 2 (diabetes mellitus, type 2) E11.9 Hyperlipidemia E78.5 Postnasal drip R09.82
[2024-01-22 09:52] VITALS: BP 120/70; PULSE 95; O2SAT 97; BMI 33.1
== END 2024-01-22 10:30 | disposition home or self-care (01) ==
PROVIDERS: PCP Internal Medicine; Visit Provider Internal Medicine
DX: E11.9 Type 2 diabetes mellitus without complications (principal); E78.5 Hyperlipidemia, unspecified; R09.82 Postnasal drip

== ENCOUNTER → 2024-01-22 09:42 | Outpatient (BNVA) | payer OTHER, SELFPAY | PROVIDERS: PCP Internal Medicine; Visit Provider Internal Medicine | DX: E11.9 Type 2 diabetes mellitus without complications (principal); E78.5 Hyperlipidemia, unspecified; R09.82 Postnasal drip | CPT/HCPCS: 99212 ==

== ENCOUNTER 2024-05-25 07:20 | Outpatient (REF) | payer OTHER, SELFPAY ==
--- OUTSIDE RECORDS SUMMARY | 2024-05-25 07:22 | XMS_ITS | Clinical Summary ---
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 Role Phone Unavailable Primary Care Provider Unavailabl e Social History Tobacco Use Types Packs/Day Years Used Date Smoking Tobacco: Never Assessed Sex and Gender Information Value Date Recorded Sex Assigned at Not on file Gender Identity Not on file Sexual Orientation Not on file Plan of Treatment Health Maintenance Due Date Last Done Comments DTaP,Tdap,and Td Vaccines (1 - Tdap) 1979 Zoster Vaccines (1 of 2) 2010 Cholesterol Screening (Lipid Panel) 05/27/2023 Colorectal Cancer Screening: Colonoscopy 05/27/2023 Depression Screening 05/27/2023 HIV Screening 05/27/2023 Hepatitis C Screening 05/27/2023 Social Influencers of Health Screening 05/27/2023 COVID-19 Vaccine ( - 2023-2 5 season) 2023 Influenza Vaccine (#1) 2023 RSV Immunization Patients 60 + Years Old (1 - 1-dose 75+ series) 2035 HIB Vaccines Aged Out No longer eligi ble based on patient's age to complete this topic HPV Vaccines Aged Out No longer eligi ble based on patient's age to complete this topic Hepatitis A Vaccines Aged Out No long er eligible based on patient's age to complete this topic Hepatitis B Vaccines Aged Out No long er eligible based on patient's age to complete this topic IPV Vaccines Aged Out No longer eligi ble based on patient's age to complete this topic MMR Vaccines Aged Out No longer eligi ble based on patient's age to complete this topic Meningococcal ACWY Vaccine Aged Out N o longer eligible based on patient's age to complete this topic Pneumococcal Vaccine: Pediat rics (0 to 5 Years) and At-Risk Patients (6 to 64 Years) Aged Out No longer eligible b ased on patient's age to complete this topic RSV Immunization Patients Un selena 20 months Aged Out No longer eligible b ased on patient's age to complete this topic Varicella Vaccines Aged Out No longer eligible based on patient's age to complete this topic
[2024-05-25 10:31] LABS: Estimated Average Glucose 240 mg/dL; Total Hemoglobin (HGBA1C) 4176.9003 umol/L
[2024-05-25 10:56] LABS: Alanine Aminotransferase 40 U/L (0-40); Albumin Level 4.2 g/dL (3.5-5.0); Alkaline Phosphatase 60 U/L (39-117); Anion Gap 15 (12-20); Aspartate Amino Transferase 29 U/L (5-37); Bilirubin Total 0.5 mg/dL (0.0-1.0); Blood Urea Nitrogen 10 mg/dL (9-16); Calcium 8.8 mg/dL (8.4-10.2); Carbon Dioxide 21 mmol/L (22-29); Chloride 103 mmol/L (96-108); Cholesterol 215 mg/dL (<200); Estimated Glomerular Filt Rate > 60; Glucose Fasting 290 mg/dL (60-99); HDL Cholesterol 26 mg/dL (>40); Potassium 4.1 mmol/L (3.3-5.1); Sodium 135 mmol/L (135-145); Triglycerides 1283 mg/dL (<150)
== END 2024-05-25 07:21 | disposition home or self-care (01) ==
LOC: HO.HMGCLDS 07:20
PROVIDERS: PCP Internal Medicine; Visit Provider Internal Medicine
DX: E78.5 Hyperlipidemia, unspecified (principal); E11.9 Type 2 diabetes mellitus without complications
CPT/HCPCS: 36415; 80053; 80061; 83036

== ENCOUNTER 2024-05-27 08:55 | Outpatient (REF) | payer OTHER, SELFPAY ==
--- NOTE | ~2024-05-27 | XR_ITS ---
EXAMINATION: XR CHEST CLINICAL INFORMATION: R05.9 - Cough, unspecified COMPARISON: 05/04/2022. TECHNIQUE: 2 views of the chest were obtained. FINDINGS: The cardiac, hilar, and mediastinal contours are normal. The lungs are clear bilaterally. There is no pneumothorax or pleural effusion. There is no focal osseous or soft tissue abnormality. There are spinal degenerative changes. XR/XR chest 2V IMPRESSION: No active pulmonary disease. No change. Electronically signed by: Feliberto Holloway MD 05/27/2024 10:03 AM BETHANY
--- OUTSIDE RECORDS SUMMARY | 2024-05-27 12:33 | XMS_ITS | Clinical Summary ---
Author Organization [facility] Address [id number] [place] [phone] Care Team Providers Care Intermodal Dispatcher Name Role Phone Unavailable Primary Care Provider [...]
== END 2024-05-27 08:56 | disposition home or self-care (01) ==
LOC: HO.HMGCX 08:55
PROVIDERS: PCP Internal Medicine; Visit Provider Internal Medicine
DX: R05.9 Cough, unspecified (principal); E78.5 Hyperlipidemia, unspecified; E11.9 Type 2 diabetes mellitus without complications; Z79.4 Long term (current) use of insulin; Z79.899 Other long term (current) drug therapy
CPT/HCPCS: 71046; 96127; 99212

== ENCOUNTER 2024-05-27 08:55 | Outpatient (AMB) | payer OTHER, SELFPAY ==
[2024-05-27 08:57] VITALS: BP 130/78; PULSE 91; RESP 20; TEMP 36.7; O2SAT 96; BMI 33.0
--- NOTE | 2024-05-27 08:57 | MHC.PC.OV ---
Vital Signs 05/27/24 08:57 Height 5 ft 4 in Weight 192 lb BMI 33.0 BP 130/78 Blood Pressure Location Lt brachial Position Sitting Respiration 20 Pulse 91 Pulse Source Pulse Oximeter Temp 98.0 F Temp Source Oral Pulse Oximetry (%) 96 Oxygen Delivery Method Room Air Intake Visit Reasons: 3m follow up Intake Note: Pt is here today for 3 months follow up visit. Allergies iodine Allergy (Unknown, Verified 05/27/24 08:58) Rash dapagliflozin [From [facility]] Adverse Reaction (Intermediate, Verified 01/22/24 09:53) Candidiasis chlorine Allergy (Unknown, Uncoded 05/27/24 08:58) Rash Medication List - Last Reconciled 05/27/24 by Vania Bruner MD atorvastatin (Lipitor) 20 mg PO DAILY blood sugar diagnostic (FreeStyle Lite Strips) 1 QD blood-glucose meter (Freestyle [employer] meter) 1 bid fluticasone propionate 50 mcg/actuation (Flonase Allergy Relief) 1 spray intranasal DAILY insulin glargine (Lantus Solostar U-100 Insulin) 20 units (0.2 mL) subcut QPM metformin 2 tabs in am, 3 tabs in pm PO; metoprolol succinate ER 25 mg PO DAILY Mounjaro (tirzepatide) 2.5 mg (0.5 mL) subcut QWEEK NS pen needle, diabetic (BD Ultra-Fine Micro Pen Needle) Use to inject insulin once a day Tobacco use date assessed: 05/27/24 Fall risk assessment: No Falls in past year Last assessed Fall Risk: 05/27/24 Dental Screening Dental Screen Date: 05/27/24 Did you have a dental visit in the last 12 months?: Yes Did you have a dental problem in the last 6 months where you did not have access to dental care?: No Was dental information given to patient?: Patient has dentist HPI 3m follow up HPI Details Patient presents for the follow-up of insulin-dependent diabetes hypertension hyperlipidemia. He reports high blood glucose readings up to over 200s fasting for the last 2 months since he stopped taking Trulicity. Patient had difficulty refilling the prescription at the pharmacy. Patient reports 10 days of fever chills productive cough general fatigue and body aches. [facility] Medical History Hyperlipidemia Annual physical exam Abnormal colonoscopy DJD (degenerative joint disease), lumbar DM type 2 (diabetes mellitus, type 2) Dysuria Nephrolithiasis Surgical History H/O colonoscopy Family History Father Lung cancer Mother No problems noted. Social History Housing: House Patient Tobacco Use Status: Never used Tobacco e-Cigarette/Vaping Use: Never Used service: No Current occupational status: employed Cognitive needs: No Hearing needs: No Vision needs: Yes Questionnaire PHQ-9 Over the last 2 weeks, how often have you been bothered by any of the following problems? 1. Little interest or pleasure in doing things: not at all 2. Feeling down, depressed, or hopeless: not at all 3. Trouble falling or staying asleep, or sleeping too much: not at all 4. Feeling tired or having little energy: not at all 5. Poor appetite or overeating: not at all 6. Feeling bad about yourself - or that you are a failure or have let yourself or your family down: not at all 7. Trouble concentrating on things, such as reading the newspaper or watching television: not at all 8. Moving or speaking so slowly that other people could have noticed. Or the opposite - being so fidgety or restless that you have been moving around a lot more than usual: not at all 9. Thoughts that you would be better off or of hurting yourself in some way: not at all Total score: 0 Depression Screening Interpretation: Negative Depression Screening Done: Yes 35367 - PHQ-9 Billing: Yes Source: Developed by Drs. Randy Call, Leela Emmanuel, Omar Galaviz and colleagues, with an educational madhu from [employer]. Thrive Questionnaire Date Thrive assessed: 05/27/24 I am a: Patient What is your living situation today?: I have a steady place to live Within the past 12 months, did the food you bought not last and you didn't have the money to get more?: Never true Within the past 12 months, did you worry whether your food would run out before you got money to buy more?: Never true Do you have trouble paying for medicines?: No Do you have trouble getting transportation to medical appointments?: No Do you have trouble paying your heating and electricity bill?: No Do you have trouble taking care of your child, family member or friend?: No Do you have trouble with day-to-day activities such as bathing, preparing meals, shopping, managing finances, etc.?: No Are you currently unemployed and looking for a job?: No Are you interested in more education?: No Please select the resources that you would like help with: None THRIVE Score: 0 AUDIT C Alcohol Use Questionnaire (AUDIT-C) 1. How often do you have a drink containing alcohol?: Never 3. How often do you have six or more drinks on one occasion?: Never Total Score: 0 PARESH-7 AMB Questionnaire PARESH-7 Date PARESH - 7 assessed: 05/27/24 Feeling nervous, anxious, or on edge: 0 = Not at all Not being able to stop or control worryin = Not at all Worrying too much about different things: 0 = Not at all Trouble relaxin = Not at all Being so restless that it is hard to sit still: 0 = Not at all Becoming easily annoyed or irritable: 0 = Not at all Feeling afraid as if something awful might happen: 0 = Not at all Total PARESH-7 score (0-4 normal; 5-9 mild; 10-14 moderate; 15-21 severe): 0 Source: Developed by Drs. Randy Call, Leela Emmanuel, Omar Galaviz and colleagues, with an educational madhu from [employer]. PARESH-7 Assessment Billing PARESH-7 Assessment Tool: PARESH-7 Assessment 41636 Review of Systems Const All systems reviewed & are unremarkable except as noted in HPI and below Eyes Reports no additional complaints ENT Reports no additional complaints Resp Reports no additional complaints GI Reports no additional complaints Reports no additional complaints Physical exam (Primary Care) Vital Signs: Last Vital Signs Temp 98.0 F 05/27/24 08:57 Pulse 91 05/27/24 08:57 Resp 20 05/27/24 08:57 BP 130/78 05/27/24 08:57 Pulse Ox 96 05/27/24 08:57 Oxygen Delivery Method Room Air 05/27/24 08:57 BMI result Body Mass Index 33.0 Tobacco/Smoking Status: Tobacco use Status Tobacco use date assessed 05/27/24 05/27/24 09:04 Patient Tobacco Use Status Never used Tobacco 05/27/24 09:04 e-Cigarette/Vaping Use Never Used 05/27/24 09:04 PHQ-9: PHQ-9 Score PHQ-9: Total score 0 05/27/24 09:04 Depression Screening Interpretation: Negative Thrive Assessment: Date of Thrive Assessment Date Thrive assessed 05/27/24 05/27/24 09:04 Const General: no acute distress HENMT Head: Yes normal to inspection Ears: TM's normal bilaterally Face and sinus: Yes normal facial exam Mouth: Normal oral and palatal mucosa present Neck Neck: Yes no lymphadenopathy and Yes supple Resp Effort & Inspection: normal respiratory effort Auscultation: crackles on the left in the lower lung [place] and diminished lung sounds (bases) bilateral Cardio Rhythm: regular rhythm Heart sounds: S1 normal heart sound present and S2 normal heart sound present GI Inspection: Yes normal to inspection Palpation (GI): Soft to palpation Percussion: Yes normal to percussion Auscultation: normal bowel sounds Coding Level of Care Code Est Pt Level 4 (75549) Diagnoses Cough R05.9 Hyperlipidemia E78.5 DM type 2 (diabetes mellitus, type 2) E11.9 Additional Codes PARESH-7 Assessment Billing - PARESH-7 Assessment Tool: PARESH-7 Assessment 53477 ([id number]) PHQ-9 - 44368 - PHQ-9 Billing: Yes ([id number]) Assessment & Plan Assessment & Plan (1) Cough: Code(s): R05.9 - Cough, unspecified Category: Medical Plan: Check chest x-ray, doxycycline 100 mg b.i.d. for 10 days is prescribed patient will follow-up in 10 days (2) Hyperlipidemia: Code(s): E78.5 - Hyperlipidemia, unspecified Category: Medical Plan: Increase atorvastatin to 40 mg a day low-cholesterol diet discussed with the patient (3) DM type 2 (diabetes mellitus, type 2): Comment: A1C 6.8 06/21 Code(s): E11.9 - Type 2 diabetes mellitus without complications Category: Medical Plan: A1c is up to 10.0. ADA diet regular physical activity discussed with the patient continue Lantus metformin and start Mounjaro 2.5 mg weekly for the 1st month , patient was advised to monitor and record glucose readings before breakfast and bedtime. Medications: New Mounjaro (tirzepatide) for 4 weeks 2.5 mg (0.5 mL) subcut QWEEK 2 mL 0RF NS atorvastatin 40 mg PO BEDTIME 90 tabs 1RF doxycycline hyclate 100 mg PO BID 20 tabs 0RF benzonatate 100 mg PO TID 30 caps 0RF Discontinued atorvastatin (Lipitor) Discontinued Reason: Doctor's Order 20 mg PO DAILY 90 tabs 3RF
--- OUTSIDE RECORDS SUMMARY | 2024-05-27 11:47 | XMS_ITS | Clinical Summary ---
Author Organization [facility] Address [id number] [place] [phone] Care Team Providers Care Adult Parole Officer Name Role Phone Unavailable Primary Care Provider [...]
== END 2024-05-27 09:36 | disposition home or self-care (01) ==
PROVIDERS: PCP Internal Medicine; Visit Provider Internal Medicine
DX: R05.9 Cough, unspecified (principal); E78.5 Hyperlipidemia, unspecified; E11.9 Type 2 diabetes mellitus without complications

== ENCOUNTER → 2024-05-27 09:28 | Outpatient (BNV) | payer OTHER, SELFPAY | PROVIDERS: PCP Internal Medicine; Visit Provider Radiology Diagnostic Radiology | DX: R05.9 Cough, unspecified (principal) | CPT/HCPCS: 71046 ==

== ENCOUNTER 2024-06-08 10:19 | Outpatient (AMB) | payer OTHER, SELFPAY ==
[2024-06-08 10:24] VITALS: BP 122/78; PULSE 86; RESP 20; TEMP 36.9; O2SAT 97; BMI 33.1
--- NOTE | 2024-06-08 10:24 | MHC.PC.OV ---
Vital Signs 06/08/24 10:24 Height 5 ft 4 in Weight 193 lb BMI 33.1 BP 122/78 Blood Pressure Location Lt brachial Position Sitting Respiration 20 Pulse 86 Pulse Source Pulse Oximeter Temp 98.4 F Temp Source Oral Pulse Oximetry (%) 97 Oxygen Delivery Method Room Air Intake Visit Reasons: 10 day follow up Intake Note: Pt is here today for a follow up visit on DM. Allergies iodine Allergy (Unknown, Verified 06/08/24 10:32) Rash dapagliflozin [From [facility]] Adverse Reaction (Intermediate, Verified 06/08/24 10:32) Candidiasis chlorine Allergy (Unknown, Uncoded 06/08/24 10:32) Rash Medication List - Last Reconciled 06/08/24 by Vania Bruner MD atorvastatin 40 mg PO BEDTIME blood sugar diagnostic (FreeStyle Lite Strips) 1 QD blood-glucose meter (Freestyle [employer] meter) 1 bid fluticasone propionate 50 mcg/actuation (Flonase Allergy Relief) 1 spray intranasal DAILY insulin aspart U-100 (Novolog FlexPen U-100 Insulin aspart) 10 units (0.1 mL) subcut TID insulin glargine (Lantus Solostar U-100 Insulin) 30 units (0.3 mL) subcut QPM metformin 2 tabs in am, 3 tabs in pm PO; metoprolol succinate ER 25 mg PO DAILY Ozempic (semaglutide) 0.25 mg (0.368 mL) subcut QWEEK NS pen needle, diabetic (BD Ultra-Fine Micro Pen Needle) Use to inject insulin once a day Tobacco use date assessed: 05/27/24 Dental Screening Dental Screen Date: 05/27/24 HPI 10 day follow up HPI Details Patient presents for the follow-up of upper respiratory infection. He still has a residual cough but overall feel better. Patient reports blood glucose readings between 200-300 before meals. He has been taking 20 units of Lantus and metformin. Patient denies polyuria polydipsia. [facility] Medical History Hyperlipidemia Annual physical exam Abnormal colonoscopy DJD (degenerative joint disease), lumbar DM type 2 (diabetes mellitus, type 2) Dysuria Nephrolithiasis Surgical History H/O colonoscopy Family History Father Lung cancer Mother No problems noted. Social History Housing: House Patient Tobacco Use Status: Never used Tobacco e-Cigarette/Vaping Use: Never Used service: No Current occupational status: employed Cognitive needs: No Hearing needs: No Vision needs: Yes Questionnaire Thrive Questionnaire Date Thrive assessed: 05/27/24 PARESH-7 AMB Questionnaire PARESH-7 Date PARESH - 7 assessed: 05/27/24 Source: Developed by Drs. Randy Call, Leela Emmanuel, Omar Galaviz and colleagues, with an educational madhu from [employer]. Review of Systems Const All systems reviewed & are unremarkable except as noted in HPI and below ENT Reports no additional complaints Card Reports no additional complaints Resp Reports no additional complaints GI Reports no additional complaints Reports no additional complaints Physical exam (Primary Care) Vital Signs: Last Vital Signs Temp 98.4 F 06/08/24 10:24 Pulse 86 06/08/24 10:24 Resp 20 06/08/24 10:24 BP 122/78 06/08/24 10:24 Pulse Ox 97 06/08/24 10:24 Oxygen Delivery Method Room Air 06/08/24 10:24 BMI result Body Mass Index 33.1 Tobacco/Smoking Status: Tobacco use Status Tobacco use date assessed 05/27/24 06/08/24 10:24 Patient Tobacco Use Status Never used Tobacco 06/08/24 10:24 e-Cigarette/Vaping Use Never Used 06/08/24 10:24 Thrive Assessment: Date of Thrive Assessment Date Thrive assessed 05/27/24 06/08/24 10:24 Const General: no acute distress HENMT Head: Yes normal to inspection Neck Neck: Yes no lymphadenopathy and Yes supple Resp Effort & Inspection: normal respiratory effort Auscultation: clear to auscultation bilaterally Cardio Rhythm: regular rhythm Heart sounds: S1 normal heart sound present and S2 normal heart sound present Coding Level of Care Code Est Pt Level 4 (91637) Diagnoses DM type 2 (diabetes mellitus, type 2) E11.9 Hyperlipidemia E78.5 Assessment & Plan Assessment & Plan (1) DM type 2 (diabetes mellitus, type 2): Comment: A1C 10.1 1/25 Code(s): E11.9 - Type 2 diabetes mellitus without complications Category: Medical Plan: For poorly controlled diabetes increase Lantus to 30 units , add NovoLog before meals 3 times a day. F or glucose less than 150 patient will take 5 units and for glucose above 150 10 units. Patient will continue metformin and Ozempic 0.25 weekly will be added. Patient will try Dexcom7 sensor., a sample given to the patient. ADA diet and regular physical activity discussed with the patient. Follow-up in 2 weeks (2) Hyperlipidemia: Code(s): E78.5 - Hyperlipidemia, unspecified Category: Medical Plan: Continue statin Medications: New Ozempic (semaglutide) for 4 weeks 0.25 mg (0.368 mL) subcut QWEEK 3 mL 1RF NS insulin aspart U-100 (Novolog FlexPen U-100 Insulin aspart) glucose <150 use 5 units, if > 150 10 units tid before meals 10 units (0.1 mL) subcut TID 15 mL 3RF fluconazole 100 mg PO DAILY 7 tabs 0RF Changed From insulin glargine (Lantus Solostar U-100 Insulin) 20 units (0.2 mL) subcut QPM 15 mL 2RF To insulin glargine (Lantus Solostar U-100 Insulin) 30 units (0.3 mL) subcut QPM 15 mL 2RF Refilled metoprolol succinate ER 25 mg PO DAILY 90 tabs 3RF
== END 2024-06-08 11:17 | disposition home or self-care (01) ==
PROVIDERS: PCP Internal Medicine; Visit Provider Internal Medicine
DX: E11.9 Type 2 diabetes mellitus without complications (principal); E78.5 Hyperlipidemia, unspecified

== ENCOUNTER → 2024-06-08 10:19 | Outpatient (BNVA) | payer OTHER, SELFPAY | PROVIDERS: PCP Internal Medicine; Visit Provider Internal Medicine | DX: E11.9 Type 2 diabetes mellitus without complications (principal); E78.5 Hyperlipidemia, unspecified | CPT/HCPCS: 99212 ==

== ENCOUNTER 2024-06-23 09:27 | Outpatient (AMB) | payer OTHER, SELFPAY ==
[2024-06-23 09:31] VITALS: BP 116/64; PULSE 84; RESP 20; TEMP 36.7; O2SAT 97; BMI 33.6
--- NOTE | 2024-06-23 09:31 | MHC.PC.OV ---
Vital Signs 06/23/24 09:31 Height 5 ft 4 in Weight 196 lb BMI 33.6 BP 116/64 Blood Pressure Location Lt brachial Position Sitting Respiration 20 Pulse 84 Pulse Source Pulse Oximeter Temp 98.0 F Temp Source Oral Pulse Oximetry (%) 97 Oxygen Delivery Method Room Air Intake Visit Reasons: 2 week follow up Intake Note: Pt is here today for 2 weeks follow up visit on DM. Allergies iodine Allergy (Unknown, Verified 06/23/24 09:32) Rash dapagliflozin [From [facility]] Adverse Reaction (Intermediate, Verified 06/23/24 09:32) Candidiasis chlorine Allergy (Unknown, Uncoded 06/23/24 09:32) Rash Medication List - Last Reconciled 06/23/24 by Vania Bruner MD atorvastatin 40 mg PO BEDTIME blood sugar diagnostic (FreeStyle Lite Strips) 1 QD blood-glucose meter (Freestyle [employer] meter) 1 bid blood-glucose sensor ([employer] G7 Sensor device) Test blood sugar 4 times per day, change sensor every 10 days fluconazole 100 mg PO DAILY fluticasone propionate 50 mcg/actuation (Flonase Allergy Relief) 1 spray intranasal DAILY insulin aspart U-100 (Novolog FlexPen U-100 Insulin aspart) 10 units (0.1 mL) subcut TID insulin glargine (Lantus Solostar U-100 Insulin) 30 units (0.3 mL) subcut QPM metformin 2 tabs in am, 3 tabs in pm PO; metoprolol succinate ER 25 mg PO DAILY Ozempic (semaglutide) 0.25 mg (0.368 mL) subcut QWEEK NS pen needle, diabetic (BD Ultra-Fine Micro Pen Needle) Use to inject insulin once a day Tobacco use date assessed: 06/23/24 Dental Screening Dental Screen Date: 05/27/24 HPI 2 week follow up HPI Details Patient presents for the follow-up of insulin-dependent diabetes. He reports improved blood glucose control since starting Ozempic and increasing insulin dose. He reports readings between 120-150 before meals. Patient reports decreased appetite and some nausea after taking Ozempic for 2 doses. He denies vomiting. Patient complains of recurrent hemorrhoids and is overdue for repeat colonoscopy. Patient has been taking atorvastatin for hyperlipidemia. [facility] Medical History (Updated 06/23/24 @ 11:35 by Vania Bruner MD) Hyperlipidemia Annual physical exam Abnormal colonoscopy DJD (degenerative joint disease), lumbar DM type 2 (diabetes mellitus, type 2) Dysuria Nephrolithiasis Surgical History H/O colonoscopy Family History Father Lung cancer Mother No problems noted. Social History Housing: House Patient Tobacco Use Status: Never used Tobacco e-Cigarette/Vaping Use: Never Used service: No Current occupational status: employed Cognitive needs: No Hearing needs: No Vision needs: Yes Questionnaire Thrive Questionnaire Date Thrive assessed: 05/27/24 PARESH-7 AMB Questionnaire PARESH-7 Date PARESH - 7 assessed: 05/27/24 Source: Developed by Drs. Randy Call, Leela Emmanuel, Omar Galaviz and colleagues, with an educational madhu from [employer]. Review of Systems Const All systems reviewed & are unremarkable except as noted in HPI and below Eyes Reports no additional complaints ENT Reports no additional complaints Card Reports no additional complaints Resp Reports no additional complaints GI Reports no additional complaints Reports no additional complaints Physical exam (Primary Care) Vital Signs: Last Vital Signs Temp 98.0 F 06/23/24 09:31 Pulse 84 06/23/24 09:31 Resp 20 06/23/24 09:31 BP 116/64 06/23/24 09:31 Pulse Ox 97 06/23/24 09:31 Oxygen Delivery Method Room Air 06/23/24 09:31 BMI result Body Mass Index 33.6 Tobacco/Smoking Status: Tobacco use Status Tobacco use date assessed 06/23/24 06/23/24 09:35 Patient Tobacco Use Status Never used Tobacco 06/23/24 09:35 e-Cigarette/Vaping Use Never Used 06/23/24 09:35 Thrive Assessment: Date of Thrive Assessment Date Thrive assessed 05/27/24 06/23/24 09:35 Const General: no acute distress HENMT Head: Yes normal to inspection Face and sinus: Yes normal facial exam Throat: Yes posterior oropharynx normal Eyes General: appearance normal, both eyes and all related structures Resp Effort & Inspection: normal respiratory effort Auscultation: clear to auscultation bilaterally Cardio Rhythm: regular rhythm Heart sounds: S1 normal heart sound present and S2 normal heart sound present GI Inspection: Yes normal to inspection Palpation (GI): Soft to palpation Auscultation: normal bowel sounds Coding Level of Care Code Est Pt Level 4 (77706) Diagnoses Dysplastic nevi D23.9 Colon polyps K63.5 DM type 2 (diabetes mellitus, type 2) E11.9 Hyperlipidemia E78.5 Assessment & Plan Assessment & Plan (1) Dysplastic nevi: Comment: On upper back Code(s): D23.9 - Other benign neoplasm of skin, unspecified Category: Medical Plan: Referred to dermatology (2) Colon polyps: Comment: 2018 colonoscopy at [facility] 3 polyps Code(s): K63.5 - Polyp of colon Category: Medical Plan: Referred to GI for repeat colonoscopy (3) DM type 2 (diabetes mellitus, type 2): Comment: A1C 10.1 05/22 Code(s): E11.9 - Type 2 diabetes mellitus without complications Category: Medical Plan: Improving glycemic control. Continue current medications. ADA diet regular physical activity discussed with the patient. Follow-up in 2 months with a fasting labs. (4) Hyperlipidemia: Code(s): E78.5 - Hyperlipidemia, unspecified Category: Medical Plan: Continue statin Orders: Orders Lipid Panel 2 Months E11.9 - Type 2 diabetes mellitus without complications, E78.5 - Hyperlipidemia, unspecified Microalbumin, Random (w Creat) 2 Months E11.9 - Type 2 diabetes mellitus without complications, E78.5 - Hyperlipidemia, unspecified Comprehensive [place]. Panel Fast 2 Months E11.9 - Type 2 diabetes mellitus without complications, E78.5 - Hyperlipidemia, unspecified Hemoglobin A1c 2 Months E11.9 - Type 2 diabetes mellitus without complications, E78.5 - Hyperlipidemia, unspecified Complete Blood Count Auto Diff 2 Months E11.9 - Type 2 diabetes mellitus without complications, E78.5 - Hyperlipidemia, unspecified Referrals Gastroenterology Referral K63.5 - Polyp of colon, Z00.00 - Encounter for general adult medical examination without abnormal findings Dermatology Referral D23.9 - Other benign neoplasm of skin, unspecified Medications: Refilled pen needle, diabetic (BD Ultra-Fine Micro Pen Needle) Use to inject insulin once a day 100 ea 3RF blood-glucose sensor ([employer] G7 Sensor device) Test blood sugar 4 times per day, change sensor every 10 days 3 ea 5RF E11.9 - Type 2 diabetes mellitus without complications blood sugar diagnostic (FreeStyle Lite Strips) 1 QD 100 ea 3RF E11.9 - Type 2 diabetes mellitus without complications
--- OUTSIDE RECORDS SUMMARY | 2024-06-23 10:41 | XMS_ITS | Clinical Summary ---
Author Organization [facility] ity Address [id number] [place] [phone] Care Team Providers Care Cis Coordinator Name Role Phone Unavailable Primary Care Provider Unavailabl e Social History Tobacco Use Types Packs/Day Years Used Date Smoking Tobacco: Never Assessed Sex and Gender Information Value Date Recorded Sex Assigned at Not on file Legal Sex Male 12:21 PM EST Gender Identity Not on file Sexual Orientation Not on file Plan of Treatment Health Maintenance Due Date Last Done Comments DTaP,Tdap,and Td Vaccines (1 - Tdap) 1979 Pneumococcal Vaccine: 50+ Ye ars (1 of 1 - PCV) 2010 Zoster Vaccines (1 of 2) 2010 Cholesterol Screening (Lipid Panel) 05/27/2023 Depression Screening 05/27/2023 HIV Screening 05/27/2023 Hepatitis C Screening 05/27/2023 Social Influencers of Health Screening 05/27/2023 COVID-19 Vaccine (1 - 2023-2 5 season) 2023 Influenza Vaccine (#1) 2023 Colorectal Cancer Screening: Colonoscopy 09/11/2026 09/11/2016 RSV Immunization Patients 60 + Years Old [...] patient's age to complete this topic Meningococcal B Vacine Aged Out No lo nger eligible based on patient's age to complete this topic Pneumococcal Vaccine: Pediat rics (0 to 5 Years) and At-Risk Patients (6 to 64 Years) Aged Out No longer eligi ble based on patient's age to complete this topic RSV Immunization Patients Un selena 20 months Aged Out No longer eligible b ased on patient's age to complete this topic Varicella Vaccines Aged Out No longer eligible based on patient's age to complete this topic Procedures Procedure Name Priority Date/Time Associated Diagnosis Comments EXTERNAL COLONOSCOPY REPORT Routine 09/11/2016 2:34 PM EDT from Last 3 Months or Most Recently Relevant to Health Maintenance Results * External Colonoscopy Report (09/11/2016 2:34 PM EDT) Anatomical Region Laterality Modality Endoscopy us Historical Provider GI~PROCEDURE ORDERABLES F inal Result from Last 3 Months or Most Recently Relevant to Health Maintenance
== END 2024-06-23 10:20 | disposition home or self-care (01) ==
PROVIDERS: PCP Internal Medicine; Visit Provider Internal Medicine
DX: D23.9 Other benign neoplasm of skin, unspecified (principal); K63.5 Polyp of colon; E11.9 Type 2 diabetes mellitus without complications; E78.5 Hyperlipidemia, unspecified

== ENCOUNTER → 2024-06-23 09:27 | Outpatient (BNVA) | payer OTHER, SELFPAY | PROVIDERS: PCP Internal Medicine; Visit Provider Internal Medicine | DX: D23.9 Other benign neoplasm of skin, unspecified (principal); K63.5 Polyp of colon; E11.9 Type 2 diabetes mellitus without complications; E78.5 Hyperlipidemia, unspecified | CPT/HCPCS: 99212 ==

== ENCOUNTER 2024-08-20 07:30 | Outpatient (REF) | payer OTHER, SELFPAY ==
--- OUTSIDE RECORDS SUMMARY | 2024-08-20 07:32 | XMS_ITS | Clinical Summary ---
Author Organization [facility] ity Address [address] [place] [phone] Care Team Providers Care Conductor Pullman Name Role Phone Unavailable Primary Care Provider [...] - 2023-2 5 season) 2023 Influenza Vaccine (Season Ended) 2024 Colorectal Cancer Screening: Colonoscopy 09/11/2026 09/11/2016 RSV Immunization Adult Patie nts (1 - 1-dose 75+ series) 2035 HIB [...] age to complete this topic Meningococcal B Vaccine Aged Out No l onger eligible based on patient's age to complete [...]
[2024-08-20 09:59] LABS: MANUAL DIFF FLAG NO
[2024-08-20 10:14] LABS: Basophils Percent Auto 0.3 % (0-2); Eosinophils Absolute Auto 0.2 X10*3/uL (0.0-0.4); Eosinophils Percent Auto 2.9 % (0-4); Hematocrit 42.1 % (42.0-52.0); Hemoglobin 14.8 g/dl (14.0-18.0); Imm Gran Abs Auto 0.02 X10*3/uL (0.00-0.03); Imm Gran Pct Auto 0.3 % (0.0-0.4); Lymphocytes Absolute Auto 2.6 X10*3/uL (1.2-4.9); Lymphocytes Percent Auto 38.6 % (20-40); Mean Corpuscular HGB Conc 35.2 g/dl (31.0-36.0); Mean Corpuscular Hemoglobin 32.9 pg (27.0-33.0); Mean Corpuscular Volume 93.6 fL (80.0-98.0); Mean Platelet Volume 10.4 fL (9.4-12.4); Monocytes Absolute Auto 0.7 X10*3/uL (0.1-1.2); Monocytes Percent Auto 9.9 % (2-11); Neutrophils Absolute Auto 3.2 x10*3/uL (2.0-8.3); Platelet Count 196 X10*3/uL (160-400); Red Cell Distribution Width 12.1 % (11.0-16.0); White Blood Count 6.7 X10*3/uL (4.8-10.8)
[2024-08-20 10:28] LABS: Estimated Average Glucose 157 mg/dL; Hemoglobin A1C 210.1843 umol/L; Hemoglobin A1c % 7.1 % (<6.0); Total Hemoglobin (HGBA1C) 3895.7113 umol/L
[2024-08-20 10:41] LABS: Alanine Aminotransferase 38 U/L (0-40); Albumin Level 4.2 g/dL (3.5-5.0); Alkaline Phosphatase 44 U/L (39-117); Anion Gap 9 (12-20); Aspartate Amino Transferase 27 U/L (5-37); Bilirubin Total 0.9 mg/dL (0.0-1.0); Blood Urea Nitrogen 14 mg/dL (9-16); Calcium 9.5 mg/dL (8.4-10.2); Carbon Dioxide 27 mmol/L (22-29); Chloride 107 mmol/L (96-108); Cholesterol 149 mg/dL (<200); Estimated Glomerular Filt Rate > 60; Glucose Fasting 179 mg/dL (60-99); HDL Cholesterol 36 mg/dL (>40); LDL Cholesterol Calculated 64 mg/dL (<100); Potassium 4.3 mmol/L (3.3-5.1); Sodium 139 mmol/L (135-145); Total Protein 6.9 g/dL (6.5-8.0); Triglycerides 247 mg/dL (<150)
[2024-08-20 10:52] LABS: Creatinine Urine 163.77 mg/dL; Microalbum/Creatinine Ratio Ur 6.1 ug/mg cr (<30)
== END 2024-08-20 07:31 | disposition home or self-care (01) ==
LOC: HO.HMGCLDS 07:30
PROVIDERS: PCP Internal Medicine; Visit Provider Internal Medicine
DX: E11.9 Type 2 diabetes mellitus without complications (principal); E78.5 Hyperlipidemia, unspecified
CPT/HCPCS: 36415; 80053; 80061; 82043; 82570; 83036; 85025

== ENCOUNTER 2024-08-24 09:31 | Outpatient (AMB) | payer OTHER, SELFPAY ==
[2024-08-24 09:39] VITALS: BP 126/70; PULSE 88; RESP 18; TEMP 37.1; O2SAT 96; BMI 34.7
--- NOTE | 2024-08-24 09:39 | MHC.PC.OV ---
Vital Signs 08/24/24 09:39 Height 5 ft 4 in Weight 202 lb BMI 34.7 BP 126/70 Blood Pressure Location Lt brachial Position Sitting Respiration 18 Pulse 88 Pulse Source Pulse Oximeter Temp 98.8 F Temp Source Oral Pulse Oximetry (%) 96 Oxygen Delivery Method Room Air Intake Visit Reasons: 2 months f/up Intake Note: Pt is here today for 2 months follow up visit. Allergies iodine Allergy (Unknown, Verified 08/24/24 09:49) Rash dapagliflozin [From Farxiga] Adverse Reaction (Intermediate, Verified 08/24/24 09:49) Candidiasis semaglutide [From Ozempic] Adverse Reaction (Intermediate, Verified 08/24/24 10:08) Abdominal Pain chlorine Allergy (Unknown, Uncoded 08/24/24 09:49) Rash Medication List - Last Reconciled 08/24/24 by Vania Bruner MD atorvastatin 40 mg PO BEDTIME blood sugar diagnostic (FreeStyle Lite Strips) 1 QD blood-glucose meter (Freestyle [employer] meter) 1 bid blood-glucose sensor ([employer] G7 Sensor device) Test blood sugar 4 times per day, change sensor every 10 days fluconazole 100 mg PO DAILY fluticasone propionate 50 mcg/actuation (Flonase Allergy Relief) 1 spray intranasal DAILY hydrocortisone 1% (Proctocort) 1 appl topical TID PRN insulin aspart U-100 (Novolog FlexPen U-100 Insulin aspart) 10 units (0.1 mL) subcut TID insulin glargine (Lantus Solostar U-100 Insulin) 30 units (0.3 mL) subcut QPM metformin 2 tabs in am, 3 tabs in pm PO; metoprolol succinate ER 25 mg PO DAILY Ozempic (semaglutide) 0.25 mg (0.368 mL) subcut QWEEK NS pen needle, diabetic (BD Ultra-Fine Micro Pen Needle) Use to inject insulin once a day Tobacco use date assessed: 08/24/24 Dental Screening Dental Screen Date: 05/27/24 HPI 2 months f/up HPI Details Patient presents for the follow-up of type 2 diabetes hyperlipidemia. Patient reports increasing fasting blood glucose since he stopped taking Ozempic which he could not tolerate because of nausea and decreased appetite. He has not been compliant with ADA diet eating more sweets. Patient insurance did not cover Lata sensor. [facility] Medical History (Updated 06/23/24 @ 11:35 by Vania Bruner MD) Hyperlipidemia Annual physical exam Abnormal colonoscopy DJD (degenerative joint disease), lumbar DM type 2 (diabetes mellitus, type 2) Dysuria Nephrolithiasis Surgical History H/O colonoscopy Family History Father Lung cancer Mother No problems noted. Social History Housing: House Patient Tobacco Use Status: Never used Tobacco e-Cigarette/Vaping Use: Never Used service: No Current occupational status: employed Cognitive needs: No Hearing needs: No Vision needs: Yes Questionnaire Thrive Questionnaire Date Thrive assessed: 05/27/24 PARESH-7 AMB Questionnaire PARESH-7 Date PARESH - 7 assessed: 05/27/24 Source: Developed by Drs. Randy Call, Leela Emmanuel, Omar Galaviz and colleagues, with an educational madhu from [employer]. Review of Systems Const All systems reviewed & are unremarkable except as noted in HPI and below Eyes Reports no additional complaints ENT Reports no additional complaints Card Reports no additional complaints Resp Reports no additional complaints GI Reports no additional complaints Physical exam (Primary Care) Vital Signs: Last Vital Signs Temp 98.8 F 08/24/24 09:39 Pulse 88 08/24/24 09:39 Resp 18 08/24/24 09:39 BP 126/70 08/24/24 09:39 Pulse Ox 96 08/24/24 09:39 Oxygen Delivery Method Room Air 08/24/24 09:39 BMI result Body Mass Index 34.7 Tobacco/Smoking Status: Tobacco use Status Tobacco use date assessed 08/24/24 08/24/24 09:51 Patient Tobacco Use Status Never used Tobacco 08/24/24 09:39 e-Cigarette/Vaping Use Never Used 08/24/24 09:39 Thrive Assessment: Date of Thrive Assessment Date Thrive assessed 05/27/24 08/24/24 09:39 Const General: no acute distress HENMT Head: Yes normal to inspection Face and sinus: Yes normal facial exam Throat: Yes posterior oropharynx normal Resp Effort & Inspection: normal respiratory effort Auscultation: clear to auscultation bilaterally Cardio Rhythm: regular rhythm Heart sounds: S1 normal heart sound present and S2 normal heart sound present GI Inspection: Yes normal to inspection Palpation (GI): Soft to palpation Coding Level of Care Code Est Pt Level 4 (93762) Diagnoses DM type 2 (diabetes mellitus, type 2) E11.9 Hyperlipidemia E78.5 Assessment & Plan Assessment & Plan (1) DM type 2 (diabetes mellitus, type 2): Comment: A1C 10.1 05/22 Code(s): E11.9 - Type 2 diabetes mellitus without complications Category: Medical Plan: A1c is down to 7.1, ADA diet increase exercise weight loss discussed with the patient. Continue current medications including metformin and insulin patient will try Mounjaro 2.5 mg weekly. He was advised to try continuous glucose sensor but he declined (2) Hyperlipidemia: Code(s): E78.5 - Hyperlipidemia, unspecified Category: Medical Plan: Continue statin, follow-up in 3 months with a fasting labs Orders: Orders Comprehensive [place]. Panel Fast 3 Months E11.9 - Type 2 diabetes mellitus without complications, E78.5 - Hyperlipidemia, unspecified Hemoglobin A1c 3 Months E11.9 - Type 2 diabetes mellitus without complications, E78.5 - Hyperlipidemia, unspecified Complete Blood Count Auto Diff 3 Months E11.9 - Type 2 diabetes mellitus without complications, E78.5 - Hyperlipidemia, unspecified Lipid Panel 3 Months E11.9 - Type 2 diabetes mellitus without complications, E78.5 - Hyperlipidemia, unspecified Microalbumin, Random (w Creat) 3 Months E11.9 - Type 2 diabetes mellitus without complications, E78.5 - Hyperlipidemia, unspecified Medications: New Mounjaro (tirzepatide) for 4 weeks 2.5 mg (0.5 mL) subcut QWEEK 2 mL 3RF NS Refilled metformin 2 tabs in am, 3 tabs in pm PO; 150 tabs 3RF metoprolol succinate ER 25 mg PO DAILY 90 tabs 3RF atorvastatin 40 mg PO BEDTIME 90 tabs 3RF Discontinued Ozempic (semaglutide) for 4 weeks Discontinued Reason: Doctor's Order 0.25 mg (0.368 mL) subcut QWEEK 3 mL 1RF NS
--- OUTSIDE RECORDS SUMMARY | 2024-08-24 10:31 | XMS_ITS | Clinical Summary ---
Author Organization [facility] ity Address [id number] [place] [phone] Care Team Providers Care Stove Polisher Name Role Phone Unavailable Primary Care Provider [...]
== END 2024-08-24 10:39 | disposition home or self-care (01) ==
LOC: HO.HMCC 09:32
PROVIDERS: PCP Internal Medicine; Visit Provider Internal Medicine
DX: E11.9 Type 2 diabetes mellitus without complications (principal); E78.5 Hyperlipidemia, unspecified

== ENCOUNTER → 2024-08-24 09:31 | Outpatient (BNVA) | payer OTHER, SELFPAY | PROVIDERS: PCP Internal Medicine; Visit Provider Internal Medicine | DX: E11.9 Type 2 diabetes mellitus without complications (principal); E78.5 Hyperlipidemia, unspecified | CPT/HCPCS: 99212 ==

== ENCOUNTER 2024-11-19 14:55 | Outpatient (AMB) | payer OTHER, SELFPAY ==
--- NOTE | 2024-11-19 14:57 | MHC.OFFVIS ---
Vital Signs 11/19/24 15:01 Height 5 ft 8 in Weight 200 lb BMI 30.4 BP 142/80 H Blood Pressure Location Rt brachial Position Sitting Pulse 80 Pulse Source Pulse Oximeter Pulse Oximetry (%) 96 Oxygen Delivery Method Room Air Intake Visit Reasons: Colonoscopy screening Intake Note: New pt for recall colo. Last 2017 and was supposed to have 5 year recall per [facility] GI. CC; Pt denies any GI sx or concerns at this time. Staff Sonographer Required: No Accompanied by: Self / Same As Patient Allergies iodine Allergy (Unknown, Verified 11/19/24 15:05) Rash dapagliflozin (From Farxiga) Adverse Reaction (Intermediate, Verified 11/19/24 15:05) Candidiasis semaglutide (From Ozempic) Adverse Reaction (Intermediate, Verified 11/19/24 15:05) Abdominal Pain chlorine Allergy (Unknown, Uncoded 11/19/24 15:05) Rash HPI HPI Colonoscopy screening: Details: 64 year old? male with past medical history of hyperlipidemia, nephrolithiasis, DJD, diabetes is here today for pre colonoscopy screening.? Patient was sent to us by his PCP.? Last colonoscopy in 2018.? Patient denies any gastrointestinal symptoms in the past or at present.? Denies any family history of gastrointestinal disease or CRC.? Denies history of difficulty with sedation or anesthesia in the past.? Negative for history of sleep apnea.? Denies any history of cardiac, renal, pulmonary, or hepatic disease.?? No history of infectious? diseases like hepatitis A, B, C, HIV or tuberculosis.? Patient is not on any anticoagulation [facility] Medical History (Updated 11/19/24 @ 15:06 by Joana Presley [facility]) Hyperlipidemia Annual physical exam Abnormal colonoscopy DJD (degenerative joint disease), lumbar DM type 2 (diabetes mellitus, type 2) Dysuria Nephrolithiasis Surgical History H/O colonoscopy Family History Father Lung cancer Mother No problems noted. Social History Housing: House Patient Tobacco Use Status: Never used Tobacco e-Cigarette/Vaping Use: Never Used service: No Current occupational status: employed Cognitive needs: No Hearing needs: No Vision needs: Yes Review of Systems Const Denies weight gain and Denies weight loss ENT Reports no additional complaints, Denies dysphagia and Denies odynophagia Card Reports no additional complaints Resp Reports no additional complaints GI Denies abdominal pain, Denies belching, Denies melena, Denies bloating, Denies change in bowel habits, Denies dysphagia, Denies excessive flatus, Denies dyspepsia, Denies heartburn, Denies diarrhea, Denies loose stools, Denies nausea, Denies odynophagia and Denies vomiting Reports no additional complaints Musc Reports no additional complaints Neuro Reports no additional complaints Psych Reports no additional complaints Endo Reports no additional complaints Physical Exam Vital Signs: Last Vital Signs Pulse 80 11/19/24 15:01 BP 142/80 H 11/19/24 15:01 Pulse Ox 96 11/19/24 15:01 Oxygen Delivery Method Room Air 11/19/24 15:01 BMI result Body Mass Index 34.3 Const General: healthy appearing, no acute distress and well developed Nutritional Appearance: well nourished and obese Orientation/consciousness: patient oriented x3 Resp Effort & Inspection: normal respiratory effort, able to speak in complete sentences, no tracheal deviation and symmetric chest movement Auscultation: clear to auscultation bilaterally Cardio Rate: regular rate GI Inspection: Yes normal to inspection, No distended and Yes obesity Palpation (GI): Soft to palpation, not firm, nontender and No hepatosplenomegaly present Auscultation: normal bowel sounds General: Yes no CVA tenderness Back/Spine/Pelvis Back: no CVA tenderness Skin General skin exam: elasticity normal, turgor normal and dry skin Neuro General: patient oriented x3 Psych Appearance: grossly normal Mental Status: mental status grossly normal Assessment & Plan Assessment & Plan (1) Colon polyps: Comment: 2018 colonoscopy at [facility] 3 polyps Code(s): K63.5 - Polyp of colon Category: Medical (2) Screen for colon cancer: Code(s): Z12.11 - Encounter for screening for malignant neoplasm of colon Plan Patient denies any GI, cardiac or respiratory symptoms.? Denies any issues with anesthesia in the past.? Denies any history of sleep apnea.? No history infectious diseases in the past or present.? Not on any anticoagulation therapy.? No family history of colon cancer.? Patient denies melena, hematochezia, unintentional weight loss or ribbon like stools.? Discussed at length the pre-procedure,? prep, diet & medications as well as what to expect prior, during and after the procedure.?? Stressed the importance of good bowel prep.? Recommended the use of Vaseline or Calmoseptine OTC & baby wipes with bowel movements to promote comfort.? ?Patient verbalizes understanding and agrees to plan of care.? He was given the opportunity to ask questions and all questions answered.? We will see him after the procedure.? Medications: New polyethylene glycol 3350 (Miralax) As directed by gastroenterology department at [facility] 238 grams PO ONCE 238 grams 0RF Z12.11 - Encounter for screening for malignant neoplasm of colon bisacodyl (Dulcolax (bisacodyl)) Start taking 2 tablet every night 7 days before the procedure and 1 day before procedure take 4 tablets at noon time followed by MiraLax prep 10 mg (2 x 5 mg) PO BEDTIME 16 tabs 0RF Z12.11 - Encounter for screening for malignant neoplasm of colon hydrocortisone 2.5% (Proctosol HC) 1 appl [place] BID-QID PRN 30 grams 2RF hemorrhoids K64.9 - Unspecified hemorrhoids Coding Level of Care Code New Pt Level 3 (90808) Diagnoses Colon polyps K63.5 Screen for colon cancer Z12.11 Time Spent (min) 40 Comment 30 minutes spent with patient and additional 10 minutes spent reviewing his records
[2024-11-19 15:01] VITALS: BP 142/80; PULSE 80; O2SAT 96; BMI 30.4
== END 2024-11-19 15:23 | disposition home or self-care (01) ==
LOC: HO.HGI 14:55
PROVIDERS: PCP Internal Medicine; Visit Provider Nurse Practitioner Family
DX: Z01.818 Encounter for other preprocedural examination (principal); Z12.11 Encounter for screening for malignant neoplasm of colon
CPT/HCPCS: 99203

== ENCOUNTER → 2024-11-19 14:55 | Outpatient (BNVA) | payer OTHER, SELFPAY | PROVIDERS: PCP Internal Medicine; Visit Provider Nurse Practitioner Family | DX: Z12.11 Encounter for screening for malignant neoplasm of colon (principal); Z86.0100 Personal history of colon polyps, unspecified | CPT/HCPCS: 99202 ==

== ENCOUNTER 2024-11-22 07:41 | Outpatient (REF) | payer OTHER, SELFPAY ==
--- OUTSIDE RECORDS SUMMARY | 2024-11-22 07:43 | XMS_ITS | Clinical Summary ---
Author Organization [facility] it Address [address] [place] [phone] Care Team Providers Care Tank Operator Name Role Phone Unavailable Primary Care Provider [...] 2) 2010 Cholesterol Screening (Lipid Panel) 05/27/2023 HIV Screening 05/27/2023 Hepatitis C Screening 05/27/2023 Social Influencers of Health Screening 05/27/2023 COVID-19 Vaccine (1 - 2023-2 5 season) 2023 Depression Screening 04/28/2024 Influenza Vaccine (#1) 2024 Colorectal Cancer Screening: Colonoscopy 09/11/2026 09/11/2016 [...]
[2024-11-22 10:08] LABS: MANUAL DIFF FLAG NO
[2024-11-22 10:16] LABS: Hematocrit 43.8 % (42.0-52.0); Hemoglobin 15.2 g/dl (14.0-18.0); Imm Gran Abs Auto 0.02 X10*3/uL (0.00-0.03); Imm Gran Pct Auto 0.3 % (0.0-0.4); Lymphocytes Absolute Auto 2.5 X10*3/uL (1.2-4.9); Mean Corpuscular HGB Conc 34.7 g/dl (31.0-36.0); Mean Corpuscular Hemoglobin 32.6 pg (27.0-33.0); Mean Corpuscular Volume 94.0 fL (80.0-98.0); NRBC Abs Auto 0.000 X10*3/uL (0.0-0.012); NRBC Pct Auto 0.0 /100WBC (0.0-0.2); Platelet Count 217 X10*3/uL (160-400); Red Blood Count 4.66 X10*6/uL (4.60-5.80); White Blood Count 7.0 X10*3/uL (4.8-10.8)
[2024-11-22 10:28] LABS: Hemoglobin A1C 234.7076 umol/L; Total Hemoglobin (HGBA1C) 3959.4650 umol/L
[2024-11-22 10:43] LABS: Alanine Aminotransferase 32 U/L (0-40); Albumin Level 4.6 g/dL (3.5-5.0); Alkaline Phosphatase 48 U/L (39-117); Anion Gap 14 (12-20); Aspartate Amino Transferase 24 U/L (5-37); Blood Urea Nitrogen 16 mg/dL (9-16); Calcium 9.1 mg/dL (8.4-10.2); Carbon Dioxide 26 mmol/L (22-29); Chloride 106 mmol/L (96-108); Cholesterol 114 mg/dL (<200); Estimated Glomerular Filt Rate > 60; HDL Cholesterol 32 mg/dL (>40); Potassium 4.7 mmol/L (3.3-5.1); Sodium 141 mmol/L (135-145); Total Protein 7.3 g/dL (6.5-8.0); Triglycerides 229 mg/dL (<150)
[2024-11-22 11:05] LABS: Microalbum/Creatinine Ratio Ur 4.8 ug/mg cr (<30)
== END 2024-11-22 07:42 | disposition home or self-care (01) ==
LOC: HO.HMGCLDS 07:41
PROVIDERS: PCP Internal Medicine; Visit Provider Internal Medicine
DX: E11.9 Type 2 diabetes mellitus without complications (principal); E78.5 Hyperlipidemia, unspecified
CPT/HCPCS: 36415; 80053; 80061; 82043; 82570; 83036; 85025

== ENCOUNTER 2024-11-23 09:12 | Outpatient (AMB) | payer OTHER, SELFPAY ==
--- NOTE | 2024-11-23 09:13 | A.OFFPC_ITS ---
Vital Signs 11/23/24 09:16 Height 5 ft 7.8 in Weight 200 lb BMI 30.6 BP 120/68 Blood Pressure Location Lt brachial Position Sitting Respiration 18 Pulse 81 Pulse Source Pulse Oximeter Temp 98.2 F Temp Source Oral Pulse Oximetry (%) 95 Oxygen Delivery Method Room Air Intake Visit Reasons: Annual PE Intake Note: Pt is here today for PE. Allergies iodine Allergy (Unknown, Verified 11/23/24 09:14) Rash dapagliflozin (From Farxiga) Adverse Reaction (Intermediate, Verified 11/23/24 09:14) Candidiasis semaglutide (From Ozempic) Adverse Reaction (Intermediate, Verified 11/23/24 09:14) Abdominal Pain chlorine Allergy (Unknown, Uncoded 11/23/24 09:14) Rash Medication List - Last Reconciled 11/23/24 by Vania Bruner MD atorvastatin 40 mg PO BEDTIME bisacodyl (Dulcolax (bisacodyl)) 10 mg (2 x 5 mg) PO BEDTIME blood sugar diagnostic (FreeStyle Lite Strips) 1 QD blood-glucose meter (Freestyle [employer] meter) 1 bid blood-glucose sensor ([employer] G7 Sensor device) Test blood sugar 4 times per day, change sensor every 10 days fluticasone propionate 50 mcg/actuation (Flonase Allergy Relief) 1 spray intranasal DAILY hydrocortisone 1% (Proctocort) 1 appl topical TID PRN hydrocortisone 2.5% (Proctosol HC) 1 appl [place] BID-QID PRN insulin aspart U-100 (Novolog FlexPen U-100 Insulin aspart) 10 units (0.1 mL) subcut TID insulin glargine (Lantus Solostar U-100 Insulin) 30 units (0.3 mL) subcut QPM metformin 2 tabs in am, 3 tabs in pm PO; metoprolol succinate ER 25 mg PO DAILY Mounjaro (tirzepatide) 2.5 mg (0.5 mL) subcut QWEEK NS pen needle, diabetic (BD Ultra-Fine Micro Pen Needle) Use to inject insulin once a day polyethylene glycol 3350 (Miralax) 238 grams PO ONCE Tobacco use date assessed: 11/23/24 Fall risk assessment: No Falls in past year Last assessed Fall Risk: 11/23/24 Dental Screening Dental Screen Date: 05/27/24 HPI Annual PE HPI Details Patient presents for physical PFSH Medical History Colon polyps Hyperlipidemia Annual physical exam Abnormal colonoscopy DJD (degenerative joint disease), lumbar DM type 2 (diabetes mellitus, type 2) Dysuria Nephrolithiasis Surgical History H/O colonoscopy Family History Father Lung cancer Mother No problems noted. Social History Housing: House Patient Tobacco Use Status: Never used Tobacco e-Cigarette/Vaping Use: Never Used service: No Current occupational status: employed Cognitive needs: No Hearing needs: No Vision needs: Yes Questionnaire Thrive Questionnaire Date Thrive assessed: 05/27/24 PARESH-7 AMB Questionnaire PARESH-7 Date PARESH - 7 assessed: 05/27/24 Source: Developed by Drs. Randy Call, Leela Emmanuel, Omar Galaviz and colleagues, with an educational madhu from [employer]. Review of Systems Const All systems reviewed & are unremarkable except as noted in HPI and below Eyes Reports no additional complaints ENT Reports no additional complaints Card Reports no additional complaints Resp Reports no additional complaints GI Reports no additional complaints Reports no additional complaints Physical exam (Primary Care) Vital Signs: Last Vital Signs Temp 98.2 F 11/23/24 09:16 Pulse 81 11/23/24 09:16 Resp 18 11/23/24 09:16 BP 120/68 11/23/24 09:16 Pulse Ox 95 11/23/24 09:16 Oxygen Delivery Method Room Air 11/23/24 09:16 BMI result Body Mass Index 30.6 Tobacco/Smoking Status: Tobacco use Status Tobacco use date assessed 11/23/24 11/23/24 09:15 Patient Tobacco Use Status Never used Tobacco 11/23/24 09:15 e-Cigarette/Vaping Use Never Used 11/23/24 09:15 Thrive Assessment: Date of Thrive Assessment Date Thrive assessed 05/27/24 11/23/24 09:15 Const General: no acute distress HENMT Head: Yes normal to inspection Ears: TM's normal bilaterally Face and sinus: Yes normal facial exam Throat: Yes posterior oropharynx normal Eyes General: appearance normal, both eyes and all related structures Neck Neck: Yes no lymphadenopathy and Yes supple Resp Effort & Inspection: normal respiratory effort Auscultation: clear to auscultation bilaterally Cardio Rhythm: regular rhythm Heart sounds: S1 normal heart sound present and S2 normal heart sound present GI Inspection: Yes normal to inspection Palpation (GI): Soft to palpation Percussion: Yes normal to percussion Auscultation: normal bowel sounds Extrem Other: Diabetic foot exam: skin is intact monofilament and vibration sensation intact bilaterally General: Yes no clubbing, cyanosis or edema Coding Level of Care Code Est Pt Prev Care 40-64y(71672) Diagnoses Hyperlipidemia E78.5 DM type 2 (diabetes mellitus, type 2) E11.9 Annual physical exam Z00.00 Assessment & Plan Assessment & Plan (1) Hyperlipidemia: Code(s): E78.5 - Hyperlipidemia, unspecified Category: Medical Plan: Continue statin (2) DM type 2 (diabetes mellitus, type 2): Comment: A1C 10.1 05/22, 7.6 10/2024 Code(s): E11.9 - Type 2 diabetes mellitus without complications Category: Medical Plan: A1c is 7.6. ADA diet increase physical activity weight loss discussed with the patient. He will continue metformin Lantus and will restart Humalog before meals according to sliding scale. Patient will continue Mounjaro at the same dose because of intermittent side effects with stomach upset. he will follow-up in 3 months (3) Annual physical exam: Code(s): Z00.00 - Encounter for general adult medical examination without abnormal findings Category: Medical Plan: Well-balanced diet regular physical activity discussed with the patient. He will have a colonoscopy patient is up-to-date with diabetic eye exam. Follow-up in 3 months with a fasting labs before Orders: Orders Hemoglobin A1c 3 Months E11.9 - Type 2 diabetes mellitus without complications, E78.5 - Hyperlipidemia, unspecified, Z00.00 - Encounter for general adult medical examination without abnormal findings Comprehensive [place]. Panel Fast 3 Months E11.9 - Type 2 diabetes mellitus without complications, E78.5 - Hyperlipidemia, unspecified, Z00.00 - Encounter for general adult medical examination without abnormal findings Lipid Panel 3 Months E11.9 - Type 2 diabetes mellitus without complications, E78.5 - Hyperlipidemia, unspecified, Z00.00 - Encounter for general adult medical examination without abnormal findings Complete Blood Count Auto Diff 3 Months E11.9 - Type 2 diabetes mellitus without complications, E78.5 - Hyperlipidemia, unspecified, Z00.00 - Encounter for general adult medical examination without abnormal findings UA w Microscopic 3 Months E11.9 - Type 2 diabetes mellitus without complications, E78.5 - Hyperlipidemia, unspecified, Z00.00 - Encounter for general adult medical examination without abnormal findings Medications: Changed From blood sugar diagnostic (FreeStyle Lite Strips) 1 QD 100 ea 3RF E11.9 - Type 2 diabetes mellitus without complications To blood sugar diagnostic (FreeStyle Lite Strips) 1 tid 300 ea 3RF E11.9 - Type 2 diabetes mellitus without complications Refilled insulin aspart U-100 (Novolog FlexPen U-100 Insulin aspart) glucose <150 use 5 units, if > 150 10 units tid before meals 10 units (0.1 mL) subcut TID 15 mL 3RF blood-glucose sensor ([employer] G7 Sensor device) Test blood sugar 4 times per day, change sensor every 10 days 3 ea 5RF E11.9 - Type 2 diabetes mellitus without complications
[2024-11-23 09:16] VITALS: BP 120/68; PULSE 81; RESP 18; TEMP 36.8; O2SAT 95; BMI 30.6
--- OUTSIDE RECORDS SUMMARY | 2024-11-23 09:39 | XMS_ITS | Clinical Summary ---
Author Organization [facility] it Address [address] [place] [phone] Care Team Providers Care Fire Investigation Manager Name Role Phone Unavailable Primary Care Provider [...]
== END 2024-11-23 10:03 | disposition home or self-care (01) ==
LOC: HO.HMCC 09:12
PROVIDERS: PCP Internal Medicine; Visit Provider Internal Medicine
DX: E78.5 Hyperlipidemia, unspecified (principal); E11.9 Type 2 diabetes mellitus without complications; Z00.00 Encounter for general adult medical examination without abnormal findings

== ENCOUNTER → 2024-11-23 09:12 | Outpatient (BNVA) | payer OTHER, SELFPAY | PROVIDERS: PCP Internal Medicine; Visit Provider Internal Medicine | DX: Z00.00 Encounter for general adult medical examination without abnormal findings (principal); E78.5 Hyperlipidemia, unspecified; E11.9 Type 2 diabetes mellitus without complications; Z79.4 Long term (current) use of insulin; Z79.84 Long term (current) use of oral hypoglycemic drugs; Z79.899 Other long term (current) drug therapy | CPT/HCPCS: 99396 ==

== ENCOUNTER 2025-01-05 08:45 | Outpatient (REF) | payer OTHER, SELFPAY ==
--- NOTE | ~2025-01-05 | US_ITS ---
EXAMINATION: US KIDNEY BILATERAL HISTORY: N20.0 - Calculus of kidney TECHNIQUE: Real-time grayscale ultrasound imaging of the kidneys was performed and images were reviewed. COMPARISON: Comparison is made with the prior examination dated 07/20/2021. FINDINGS: Right kidney: The right kidney measures 11.7 x 6.1 x 5.8 cm. Renal parenchymal echotexture and thickness are normal. Again seen is a 9 x 9 x 10 mm cyst at the upper pole. There is a 1.4 x 1.0 x 1.4 cm echogenic focus in the interpolar region which appears larger than on the prior study (previously 9 x 7 x 7 mm). There is a 3 mm nonobstructing calculus at the lower pole. No hydronephrosis. Left Kidney: The left kidney measures 11.7 x 5.1 x 4.4 cm. Renal parenchymal echotexture and thickness are normal. There is a 0.9 x 1.1 x 1.1 cm cyst in the interpolar region. There is no hydronephrosis or renal calculi. US/US renal BI IMPRESSION: 1. 1.4 x 1.0 x 1.4 cm echogenic lesion in the interpolar region of the right kidney which is larger than on the prior study. 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 2. Bilateral renal cysts as described. 3. 3 mm nonobstructing calculus at the lower pole of the right kidney. Electronically signed by: Randy Sotelo MD 01/05/2025 09:14 AM EDT
--- OUTSIDE RECORDS SUMMARY | 2025-01-05 10:12 | XMS_ITS | Clinical Summary ---
Author Organization [facility] it Address [id number] [place] [phone] Care Team Providers Care Bessemer Converter Operator Name Role Phone Unavailable Primary Care [...]
== END 2025-01-05 08:46 | disposition home or self-care (01) ==
LOC: HO.HMGCX 08:45
PROVIDERS: PCP Internal Medicine; Visit Provider Internal Medicine
DX: N20.0 Calculus of kidney (principal)
CPT/HCPCS: 76775

== ENCOUNTER → 2025-01-05 08:48 | Outpatient (BNV) | payer OTHER, SELFPAY | PROVIDERS: PCP Internal Medicine; Visit Provider Radiology Diagnostic Radiology | DX: N20.0 Calculus of kidney (principal) | CPT/HCPCS: 76775 ==

== ENCOUNTER 2025-01-19 07:11 | Outpatient (REF) | payer OTHER, SELFPAY ==
--- OUTSIDE RECORDS SUMMARY | 2025-01-19 07:14 | XMS_ITS | Clinical Summary ---
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
[2025-01-19 10:48] LABS: Blood Urea Nitrogen 13 mg/dL (9-16); Estimated Glomerular Filt Rate > 60
== END 2025-01-19 07:12 | disposition home or self-care (01) ==
LOC: HO.HMGCLDS 07:11
PROVIDERS: PCP Internal Medicine; Visit Provider Internal Medicine
DX: N28.89 Other specified disorders of kidney and ureter (principal); N20.0 Calculus of kidney
CPT/HCPCS: 36415; 82565; 84520

== ENCOUNTER 2025-02-22 07:35 | Outpatient (REF) | payer OTHER, SELFPAY ==
--- OUTSIDE RECORDS SUMMARY | 2025-02-22 07:39 | XMS_ITS | Clinical Summary ---
Author Organization [facility] it Address [id number] [place] [id number] Care Team Providers Care Sole Skiver Name Role Phone Unavailable Primary Care Provider [...]
[2025-02-22 10:00] LABS: MANUAL DIFF FLAG NO
[2025-02-22 10:02] LABS: Appearance Urine Turbid; Glucose Urine UA Negative (Negative); PH 5.0 (5.0-9.0); Specific Gravity - Urine 1.020 (1.005-1.025)
[2025-02-22 10:06] LABS: Hematocrit 44.6 % (42.0-52.0); Hemoglobin 15.1 g/dl (14.0-18.0); Imm Gran Abs Auto 0.02 X10*3/uL (0.00-0.03); Imm Gran Pct Auto 0.3 % (0.0-0.4); Lymphocytes Absolute Auto 2.6 X10*3/uL (1.2-4.9); Mean Corpuscular HGB Conc 33.9 g/dl (31.0-36.0); Mean Corpuscular Hemoglobin 32.1 pg (27.0-33.0); Mean Corpuscular Volume 94.7 fL (80.0-98.0); NRBC Abs Auto 0.000 X10*3/uL (0.0-0.012); NRBC Pct Auto 0.0 /100WBC (0.0-0.2); Platelet Count 217 X10*3/uL (160-400); Red Blood Count 4.71 X10*6/uL (4.60-5.80); White Blood Count 7.2 X10*3/uL (4.8-10.8)
[2025-02-22 10:19] LABS: Alanine Aminotransferase 30 U/L (0-40); Albumin Level 4.4 g/dL (3.5-5.0); Alkaline Phosphatase 46 U/L (39-117); Anion Gap 12 (12-20); Aspartate Amino Transferase 37 U/L (5-37); Blood Urea Nitrogen 13 mg/dL (9-16); Calcium 9.0 mg/dL (8.4-10.2); Carbon Dioxide 28 mmol/L (22-29); Chloride 105 mmol/L (96-108); Cholesterol 132 mg/dL (<200); Estimated Glomerular Filt Rate > 60; HDL Cholesterol 34 mg/dL (>40); Potassium 4.2 mmol/L (3.3-5.1); Sodium 141 mmol/L (135-145); Total Protein 7.0 g/dL (6.5-8.0); Triglycerides 216 mg/dL (<150)
== END 2025-02-22 07:36 | disposition home or self-care (01) ==
LOC: HO.HMGCLDS 07:35
PROVIDERS: PCP Internal Medicine; Visit Provider Internal Medicine
DX: Z00.00 Encounter for general adult medical examination without abnormal findings (principal); E11.9 Type 2 diabetes mellitus without complications; E78.5 Hyperlipidemia, unspecified
CPT/HCPCS: 36415; 80053; 80061; 81001; 83036; 85025

== ENCOUNTER 2025-02-24 08:54 | Outpatient (AMB) | payer OTHER, SELFPAY ==
[2025-02-24 08:56] VITALS: BP 128/64; PULSE 77; RESP 15; TEMP 37.1; O2SAT 97
--- NOTE | 2025-02-24 08:56 | A.OFFPC_ITS ---
Vital Signs 02/24/25 08:56 Height 5 ft 8 in Weight 197 lb BMI 30.0 BP 128/64 Blood Pressure Location Lt brachial Position Sitting Respiration 15 Pulse 77 Pulse Source Pulse Oximeter Temp 98.7 F Temp Source Oral Pulse Oximetry (%) 97 Oxygen Delivery Method Room Air Intake Visit Reasons: 3m follow up Intake Note: Pt is here today for his 3mo. f/u Allergies iodine Allergy (Unknown, Verified 02/24/25 08:56) Rash dapagliflozin (From Farxiga) Adverse Reaction (Intermediate, Verified 02/24/25 08:56) Candidiasis semaglutide (From Ozempic) Adverse Reaction (Intermediate, Verified 02/24/25 08:56) Abdominal Pain chlorine Allergy (Unknown, Uncoded 02/24/25 08:56) Rash Medication List - Last Reconciled 02/24/25 by Vania Bruner MD atorvastatin 40 mg PO BEDTIME bisacodyl (Dulcolax (bisacodyl)) 10 mg (2 x 5 mg) PO BEDTIME blood sugar diagnostic (FreeStyle Lite Strips) 1 tid blood-glucose meter (Freestyle InsuLinx meter) 1 bid blood-glucose sensor (ProspectNow G7 Sensor device) Test blood sugar 4 times per day, change sensor every 10 days fluticasone propionate 50 mcg/actuation (Flonase Allergy Relief) 1 spray intranasal DAILY gabapentin 200 mg (2 x 100 mg) PO BEDTIME hydrocortisone 1% (Proctocort) 1 appl topical TID PRN hydrocortisone 2.5% (Proctosol HC) 1 appl AL BID-QID PRN insulin aspart U-100 (Novolog FlexPen U-100 Insulin aspart) 10 units (0.1 mL) subcut TID Lantus Solostar U-100 Insulin (insulin glargine) 40 units (0.4 mL) subcut QPM NS metformin 2 tabs in am, 3 tabs in pm PO; metoprolol succinate ER 25 mg PO DAILY Mounjaro (tirzepatide) 2.5 mg (0.5 mL) subcut QWEEK NS pen needle, diabetic (BD Ultra-Fine Micro Pen Needle) Use to inject insulin once a day polyethylene glycol 3350 (Miralax) 238 grams PO ONCE Tobacco use date assessed: 02/24/25 Dental Screening Dental Screen Date: 05/27/24 HPI 3m follow up HPI Details Patient presents for the follow-up of hypertension and hyperlipidemia. Patient reports improve overall blood glucose controlled morning between 120- 140. Patient has a occasionally high readings after having higher carbohydrate load for dinner. He has been taking NovoLog usually before dinner only. Patient denies hypoglycemia. Patient reports pain burning sensation of both feet worse at night. [facility] Medical History Renal mass, right Colon polyps Hyperlipidemia Annual physical exam Abnormal colonoscopy DJD (degenerative joint disease), lumbar DM type 2 (diabetes mellitus, type 2) Dysuria Nephrolithiasis Surgical History H/O colonoscopy Family History Father Lung cancer Mother No problems noted. Social History Housing: House Patient Tobacco Use Status: Never used Tobacco e-Cigarette/Vaping Use: Never Used service: No Current occupational status: employed Cognitive needs: No Hearing needs: No Vision needs: Yes Questionnaire PHQ-9 Over the last 2 weeks, how often have you been bothered by any of the following problems? 2. Feeling down, depressed, or hopeless: nearly every day 3. Trouble falling or staying asleep, or sleeping too much: nearly every day Source: Developed by Drs. Randy Call, Omar Mendoza and colleagues, with an educational madhu from [employer]. Thrive Questionnaire Date Thrive assessed: 05/27/24 PARESH-7 AMB Questionnaire PARESH-7 Date PARESH - 7 assessed: 05/27/24 Source: Developed by Drs. Randy Call, Omar Mendoza and colleagues, with an educational madhu from [employer]. Review of Systems Const All systems reviewed & are unremarkable except as noted in HPI and below Eyes Reports no additional complaints ENT Reports no additional complaints Card Reports no additional complaints Resp Reports no additional complaints GI Reports no additional complaints Reports no additional complaints Physical exam (Primary Care) Vital Signs: Last Vital Signs Temp 98.7 F 02/24/25 08:56 Pulse 77 02/24/25 08:56 Resp 15 02/24/25 08:56 BP 128/64 02/24/25 08:56 Pulse Ox 97 02/24/25 08:56 Oxygen Delivery Method Room Air 02/24/25 08:56 BMI result Body Mass Index 30.0 Tobacco/Smoking Status: Tobacco use Status Tobacco use date assessed 02/24/25 02/24/25 09:01 Patient Tobacco Use Status Never used Tobacco 02/24/25 08:57 e-Cigarette/Vaping Use Never Used 02/24/25 08:57 Thrive Assessment: Date of Thrive Assessment Date Thrive assessed 05/27/24 02/24/25 08:57 Const General: no acute distress HENMT Head: Yes normal to inspection Neck Neck: Yes supple Resp Effort & Inspection: normal respiratory effort Auscultation: clear to auscultation bilaterally Cardio Rhythm: regular rhythm Heart sounds: S1 normal heart sound present and S2 normal heart sound present Coding Level of Care Code Est Pt Level 4 (22001) Diagnoses Colon polyps K63.5 DM type 2 (diabetes mellitus, type 2) E11.9 Hyperlipidemia E78.5 Diabetic neuropathy E11.40 Assessment & Plan Assessment & Plan (1) Colon polyps: Comment: 2018 colonoscopy at [facility] 3 polyps, repeat 5 yrs Code(s): K63.5 - Polyp of colon Category: Medical Plan: He is overdue for colonoscopy . he will be referred to Dr. Bishop (2) DM type 2 (diabetes mellitus, type 2): Comment: A1C 10.1 05/22, 7.6 10/2024 Code(s): E11.9 - Type 2 diabetes mellitus without complications Category: Medical Plan: A1c is down to 6.4, continue ADA diet increase physical activity and weight loss discussed with the patient. He declined increasing the dose of Mounjaro. Continue current medications and follow-up in 3 months with a fasting labs before (3) Hyperlipidemia: Code(s): E78.5 - Hyperlipidemia, unspecified Category: Medical Plan: Continue statin (4) Diabetic neuropathy: Code(s): E11.40 - Type 2 diabetes mellitus with diabetic neuropathy, unspecified Category: Medical Plan: Try 200 mg of gabapentin Orders: Orders Comprehensive [place]. Panel Fast 3 Months E11.9 - Type 2 diabetes mellitus without complications, E78.5 - Hyperlipidemia, unspecified Hemoglobin A1c 3 Months E11.9 - Type 2 diabetes mellitus without complications, E78.5 - Hyperlipidemia, unspecified Lipid Panel 3 Months E11.9 - Type 2 diabetes mellitus without complications, E78.5 - Hyperlipidemia, unspecified Microalbumin, Random (w Creat) 3 Months E11.9 - Type 2 diabetes mellitus without complications, E78.5 - Hyperlipidemia, unspecified UA w Microscopic 3 Months E11.9 - Type 2 diabetes mellitus without complications, E78.5 - Hyperlipidemia, unspecified Complete Blood Count Auto Diff 3 Months E11.9 - Type 2 diabetes mellitus without complications, E78.5 - Hyperlipidemia, unspecified Referrals Gastroenterology Referral K63.5 - Polyp of colon, R93.3 - Abnormal findings on diagnostic imaging of other parts of digestive tract Medications: New gabapentin 200 mg (2 x 100 mg) PO BEDTIME 60 caps 2RF Changed From Lantus Solostar U-100 Insulin (insulin glargine) 30 units (0.3 mL) subcut QPM 30 mL 3RF NS E11.9 - Type 2 diabetes mellitus without complications To Lantus Solostar U-100 Insulin (insulin glargine) 40 units (0.4 mL) subcut QPM 30 mL 3RF NS E11.9 - Type 2 diabetes mellitus without complications Refilled Mounjaro (tirzepatide) for 4 weeks 2.5 mg (0.5 mL) subcut QWEEK 2 mL 3RF NS metformin 2 tabs in am, 3 tabs in pm PO; 450 tabs 3RF atorvastatin 40 mg PO BEDTIME 90 tabs 3RF
--- OUTSIDE RECORDS SUMMARY | 2025-02-24 09:54 | XMS_ITS | Clinical Summary ---
Author Organization [facility] it Address [id number] [place] [id number] Care Team Providers Care Hris Specialist Name Role Phone Unavailable Primary Care Provider [...]
== END 2025-02-24 09:50 | disposition home or self-care (01) ==
PROVIDERS: PCP Internal Medicine; Visit Provider Internal Medicine
DX: K63.5 Polyp of colon (principal); E11.40 Type 2 diabetes mellitus with diabetic neuropathy, unspecified; E78.5 Hyperlipidemia, unspecified

== ENCOUNTER 2025-03-14 08:13 | Outpatient (REF) | payer OTHER, SELFPAY | END 2025-03-14 08:14 | disposition home or self-care (01) | LOC: HO.CT 08:13 | PROVIDERS: PCP Internal Medicine; Visit Provider Internal Medicine | DX: Z13.89 Encounter for screening for other disorder (principal) ==